=== PATIENT | male | born 1940 | race Caucasian/White ===

== ENCOUNTER 2020-12-05 09:00 | Outpatient (RCR) | payer MEDICARE, SELFPAY | END 2020-12-05 23:59 | LOC: IMMUN 09:00 | PROVIDERS: PCP Family Medicine; Visit Provider Family Medicine | DX: Z23 Encounter for immunization (principal) | CPT/HCPCS: 0011A; 0012A; 91301 ==

== ENCOUNTER 2021-01-08 09:05 | Day surgery (SDC) | payer MEDICARE, SELFPAY ==
[2021-01-08] VITALS (11 sets, daily range): BP systolic 119–148; BP diastolic 60–81; PULSE 67–84; RESP 16; TEMP 36.3–37.1; O2SAT 95–100; BMI 22.2
--- NOTE | 2021-01-08 | PROS_PTH ---
PATIENT: EDMUNDO CHOUDHURY LOC: [facility] [place] U#:[id number] AGE/SX: 80/M ROOM: RE01/08/[address]: Dr. Juve Jade MD : [id number] BED: DIS: 01/09/2021 SPEC #: [id number] RECD: 01/09/21 07:32 STATUS: ASMITA REEmma #: [id number] LUBNA: 01/08/21 00:[address]: Juve Jade DEPT: SURGICAL PATHOLOGY RECD BY: Jerry Patterson ENTERED: 01/09/21 07:41 SP TYPE: TURP OTHR DR: Dr. Royer Sparks, DO Tissues: Prostate, NOS Procedures: Surgery Specimen Level IV HEADER OPERATION: Cysto, TUR prostate, Olymp[employer] PRE-OP DIAGNOSIS: BPH with obstruction TISSUE SUBMITTED: Prostate tissue MICROSCOPIC DIAGNOSIS Prostate tissue, TUR: Benign prostatic hyperplasia, glandular and stromal type. Mild chronic inflammation. SJ:marcos 01/10/2021 MICROSCOPIC DESCRIPTION Slides are reviewed. GROSS DESCRIPTION Received is one container labeled with the patient's name and designated prostate tissue. The specimen consists of multiple irregular fragments of pink-christian, rubbery, soft tissue that in aggregate weigh 6.9 gm and measure in aggregate 4.5 x 3.5 x 1.5 cm. The entire specimen is submitted in six cassettes. / YOLANDA:marcos 01/09/21 TC:5 CPT: 33866
[2021-01-08] MEDS: Lactated Ringers 1,000 ML 100 ML IV (09:50)
[2021-01-08] MEDS: Cefazolin 2 GM in 0.9% Normal Saline 100 ML IV (14:08)
--- NOTE | 2021-01-08 14:14 | HP.PCM_ITS ---
History of Present Illness Date of Admission: 01/08/21 Chief Complaint: BPH with obstruction The patient is a 80 year old male with BPH and obstruction presents for a TURP at the hospital. Past Medical History Allergies No Known Allergies Allergy (Verified 01/08/21 09:27) Home Medications: Ambulatory Orders Medication Instructions Recorded Donepezil HCl [Aricept] 10 mg PO DAILY 01/01/21 Finasteride 5 mg PO DAILY 01/01/21 Surgical History: no surgical history Smoking Status: Former smoker Tobacco Use: Chew Review of Systems Constitutional: Denies: Chills, Fever, Weight Change HEENT: Denies: Head Aches, Sinus Congestion, Sinus Drainage Cardiovascular: Denies: Chest Pain, Palpitations Respiratory: Denies: Cough, Shortness of breath at rest, Sputum production Gastrointestinal: Denies: Abdominal Pain, Nausea, Vomiting Genitourinary: Denies: Dysuria Musculoskeletal: Denies: Joint Pain, Joint Tenderness Skin: Denies: Rash, Wounds Neurological: Denies: Numbness, Tingling, Focal weakness Psychiatric: Denies: Anxiety, Depression, Homicidal Ideations, Suicidal Ideatio ns Hematologic/ Lymphatic: Denies: Easy Bruising, Easy Bleeding VTE Information - Inpt Only VTE Present on Admission: No VTE Mechan Device Prophylaxis: SCD's - Physical Exam Vitals/I&O's: Vital Signs Temp Pulse Resp BP Pulse Ox 97.3 F L 77 16 128/72 H 100 01/08/21 09:27 01/08/21 09:27 01/08/21 09:27 01/08/21 09:27 01/08/21 09:27 Oxygen Delivery Method Room Air Weight: 66.4 kg Body Mass Index (BMI) 22.2 General: Alert, Oriented x3, Cooperative HEENT: Atraumatic, PERRLA, EOMI, Normocephalic Neck: Supple, No JVD, Negative Carotid Bruits Lungs: Clear to auscultation, Normal air movement Cardiovascular: Regular rate, No murmurs Abdomen: Bowel Sounds Present, Soft, Non Tender Extremities: No edema, Capillary Refill Less than 3 Seconds Skin: No rashes, No breakdown Musculoskeletal: No Tenderness to Palpation of Joints or Extremities Neurological: Cranial nerves II-XII grossly intact Psych/Mental Status: Normal Affect, Appropriate Microbiology Past 72 Hours 01/07/21 09:10 Interface Orders SARS-CoV-2 Antigen (Rapid) - Final Current Medications Lactated Ringer's () 1,000 mls @ 100 mls/hr IV .Q10H ANITA Last Admin: 01/08/21 09:50 Dose: 100 mls/hr Documented by: Assessment/Plan plan for TURP
--- NOTE | 2021-01-08 14:16 | DCINST_ITS ---
Discharge Diet: No Restrictions Discharge Activity: Return to Normal Activity, May Not Drive - for 2 days. Additional Activity Instructions:: Please be aware that pain medications may cause nausea. You should typically eat light foods as you take your pain medication. Pain medication may cause constipation, if this is a problem for you, please discuss with your doctor. Call your doctor if your incision/area has: Sudden Increased Bleeding Instructions: Transurethral Resection of the Prostate (TURP): Home Recovery Allergies/Adverse Reactions: Allergies No Known Allergies Allergy (Verified 01/08/21 09:27) Medications to take at Discharge Donepezil HCl [Aricept] 10 mg PO DAILY 01/01/21 Finasteride 5 mg PO DAILY 01/01/21 Primary Care Physician: Royer Sparks DO [Primary Care Provider] - Test Results: Test results from this visit will be discussed in further detail at your follow- up appointment, if applicable. Please Follow Up With: Juve Jade MD When: in 2 weeks, please call to make an appointment.
--- NOTE | 2021-01-08 14:51 | PCM.OPRPT ---
Report of Operation Date of Procedure: 01/08/21 Pre-Operative Diagnosis: bph with obstruction Post-Operative Diagnosis: same Surgery/Procedure Performed:: turp Description of Surgical Findings:: In the preoperative setting I discussed with the patient how the surgery would be done with expect afterwards. We discussed how a prostate resection is done and we discussed the risk of the surgery including, bleeding, infection, retrograde ejaculation, changes with ejaculation or intercourse,. We discussed the possibility that the resection of the prostate may not alleviate his urinary symptoms. We discussed the small risk of developing scar tissue along the urethral channel and strictures. We also discussed the chance of the prostate could grow back and he may need further surgery or treatment in the future for prostate problems. Patient was taken back to the operating room, timeout procedure was performed, he was identified and marked and placed on the operating room table. He underwent general anesthesia. He was placed in dorsolithotomy position. Penis and testicles were prepped and draped in usual sterile fashion. Went into the bladder using the visual obturator with a resectoscope. Once inside the bladder identified the right and left ureteral orifice. I then identified the prostate and the anatomy of the prostate. I marked out the area of the sphincter and the verumontanum was identified. I then proceeded with the prostate resection first resected the median lobe. And then resected the right lobe of the prostate. Then to resect the left lobe of the prostate. I then resected the apical tissue of the prostate. Made sure that there was no injury to the sphincter or the verumontanum was still intact. At the end of the resection all the chips were Ellik out of the bladder. I then identified the left and right ureteral orifice and these were confirmed to be in good position and effluxing and not injured. The resectoscope was removed, a 22 [place] catheter was placed into the bladder on continuous irrigation. And the urine was fairly light pink color and draining normally. He was taken back to the PACU in good condition. Type of Anesthesia:: General Drains: 3 way rojo - Admit VTE Documentation VTE Present on Admission: No VTE Mechan Device Prophylaxis: SCD's
[2021-01-08] MEDS: 0.9% Normal Saline 1,000 ML 75 ML IV (15:10)
[2021-01-08] MEDS: Docusate Sodium 100 MG Capsule PO (21:22)
[2021-01-08] MEDS: Ciprofloxacin 400 MG/200 ML BAG 200 MG IV (21:22)
[2021-01-09] MEDS: 0.9% Normal Saline 1,000 ML 75 ML IV (05:43)
[2021-01-09 08:13] VITALS: BP 101/69; PULSE 76; RESP 16; TEMP 36.7; O2SAT 97
[2021-01-09] MEDS: Ciprofloxacin 400 MG/200 ML BAG 200 MG IV (09:27)
[2021-01-09] MEDS: Donepezil HCl 10 MG Tablet PO (09:28)
[2021-01-09] MEDS: Pantoprazole Sodium 40 MG Tablet PO (09:28)
[2021-01-09] MEDS: Docusate Sodium 100 MG Capsule PO (09:28)
[2021-01-09] MEDS: Finasteride 5 MG Tablet PO (09:28)
[2021-01-09 09:41] VITALS: PULSE 76; RESP 16
[2021-01-09 14:17] VITALS: BP 139/74; PULSE 80; RESP 16; TEMP 36.6; O2SAT 98
--- NOTE | 2021-01-09 17:16 | NURSING ---
Late entry: Student documentation reviewed.
== END 2021-01-09 14:21 | disposition home or self-care (01) ==
LOC: SDC 09:06 → AC 09:08 → MS3 15:49
PROVIDERS: PCP Family Medicine; Referring Provider Urology; Visit Provider Urology
PROC: (CPT 52630; principal; 2021-01-08 12:10)
DX: N40.1 Benign prostatic hyperplasia with lower urinary tract symptoms (principal); N13.8 Other obstructive and reflux uropathy; N41.1 Chronic prostatitis; F17.220 Nicotine dependence, chewing tobacco, uncomplicated; Z20.822 Contact with and (suspected) exposure to COVID-19
CPT/HCPCS: 52630; 87426; 88305; C9803; J7030; J7120; J0744; J2405

== ENCOUNTER 2022-09-05 20:08 | Observation (INO) | payer MEDICARE, SELFPAY ==
[2022-09-05 20:09] VITALS: BP 135/80; PULSE 118; RESP 17; TEMP 36.6; O2SAT 96; BMI 22.0
--- NOTE | 2022-09-05 20:36 | EKG12_ITS ---
Test Reason : DYSRHYTHMIA Blood Pressure : / mmHG Vent. Rate : 095 BPM Atrial Rate : 095 BPM P-R Int : 146 ms QRS Dur : 080 ms QT Int : 330 ms P-R-T Axes : 067 070 042 degrees QTc Int : 414 ms Normal sinus rhythm Nonspecific ST abnormality Abnormal ECG Confirmed by MARY WITT, MORRIS ([id number]), assistant film editor WENDI RUDD ([id number]) on 09/08/2022 1:30:55 PM Referred By: PL Confirmed By:MORRIS HERNANDEZ MD
[2022-09-05 20:50] LABS: Absolute Lymphocyte Count 1.25 X10^3/uL (0.83-4.51); Absolute Neutrophil Count 8.1 X10^3/uL (2.0-7.7); Basophil# 0.02 X10^3/uL; Basophil% 0.2 % (0-1); Eosinophil# 0.05 X10^3/uL; Eosinophils% 0.5 % (0-5); Hematocrit 45.9 % (40-54); Hemoglobin 15.3 g/dL (13.0-16.5); Lymphocyte # 1.25 X10^3/ul (0.83-4.51); Mean Corp Hgb Conc 33.3 g/dL (32-36); Mean Corpuscular Hgb 30.7 pg (27.0-32.0); Mean Corpuscular Volume 92.2 fL (80-94); Mean Platelet Vol. 9.3 fl (6.2-12.0); Monocyte# 0.93 X10^3/uL; Monocyte% 8.9 % (0-10); NRBC Flagged by Analyzer 0 % (0-5); Neutrophil # 8.07 X10^3/uL (2.7-7.7); Neutrophil % 77.6 % (47-70); Platelet Count 260 K/mm3 (150-450); RBC Distribution Width SD 43.8 fl (35.1-43.9); Red Blood Count 4.98 M/mm3 (4.6-6.2); White Blood Count 10.4 K/mm3 (4.4-11.0)
--- NOTE | 2022-09-05 20:56 | EX.ED.DYSGE1 ---
HPI History of Present Illness Chief Complaint: Complaint Informant: spouse/S.O. Narrative Narrative: Patient presents with generalized weakness, fevers frequent urination and incontinence which is new. He has a history of dementia and is on donepezil. No other medical problems. His states that he was recently admitted to the hospital for COVID for about 2 to 3 days. He was admitted just for generalized weakness. He had no breathing problems at any time and still is not coughing. He has been home since Wednesday. He has gotten weaker again. He cannot get up and move around today. She cannot carry him. She was able to get him into urgent care earlier where they stated he has a UTI but because of the weakness and worsening confusion they recommended he come here. PFSH PFSH Home Medications donepezil 10 mg tablet 10 mg PO DAILY 01/01/21 [History Last Taken Unknown] Allergy/AdvReac Type Severity Reaction Status Date / Time No Known Allergies Allergy Verified 09/05/22 20:12 Social History Smoking Status: Never smoker ROS ROS ED Constitutional Constitutional ED: Reports subjective ENT ENT ED: Denies rhinorrhea Respiratory/Chest Respiratory/Chest: Denies cough Gastrointestinal Gastrointestinal: Denies diarrhea or vomiting Genitourinary Genitourinary ED: Reports urinary frequency Integumentary Denies rash Neurologic Neurologic: Reports weakness Endocrine Endocrinology: Reports polyuria; Denies polydipsia Hematologic/Lymphatic Hematologic/Lymphatic: Denies easy bleeding or easy bruising Allergic/Immunologic Allergic/Immunologic ED: Denies urticaria EXAM Physical Exam Const Vital Signs: 09/05/22 20:09 09/05/22 20:36 09/05/22 22:10 Temperature 97.8 F Temperature Source Temporal Pulse Rate 118 H Respiratory Rate 17 Respiratory Pattern Normal Blood Pressure 135/80 H Blood Pressure Mean 98 Pulse Ox 96 97 Oxygen Delivery Method Room Air Room Air Positive well nourished and well developed General Appearance ED: well developed and NAD; Negative for cyanotic or diaphoretic HEENT HEENT Narrative: Mildly dry mucous membrane Neck no JVD Chest Wall inspection of chest normal Resp normal respiratory effort and clear to auscultation bilaterally Resp Narrative: No coughing while I am in the room. Auscultation: Negative for rales, rhonchi or wheezes Cardio regular rhythm Rate: tachycardic GI normal to inspection, nondistended, normoactive bowel sounds and non-tender Narrative: Some external condyloma. Cath specimen was done. Urine did look somewhat cloudy. Back/Spine no CVA tenderness Lumbar Spine / Lower Back: lumbar spinal tenderness Extremity General Extremety ED: Negative for tenderness Neuro Neuro Narrative: Patient is alert and really oriented x1. He does not offer any information during the history. He does cooperate with exam Psych Attitude: No agitated Mood & Affect: Negative for anxious Skin no rashes or lesions noted MDM MDM MDM Narrative Medical decision making narrative: Blood work shows normal CBC including white count hemoglobin and platelets. Electrolytes are overall unremarkable. However, patient was just in the hospital and was given a lot of IV fluids. Lactate was normal. LFTs show minimal elevations of AST and ALT but there is no tenderness on exam. Urine is strongly positive for UTI. It is cloudy. It has up to 100 red cells white cells with positive nitrites and leukocyte Estrace. He has 2+ bacteria. This is a catheterized urine specimen. Patient is too weak to get up and walk. His cannot care for him safely at home because of this. I think he does need to come in the hospital for this. We did also check COVID and this is still positive. This may be contributing to his generalized weakness but I think he genuinely does have a UTI also. He is not having hypoxia or pulmonary symptoms. I discussed case with hospitalist. Lab Data Attestation: I reviewed the patient's lab results. Labs: Laboratory Results - last 24 hr 09/05/22 09/05/22 09/05/22 20:40 20:40 20:40 WBC 10.4 RBC 4.98 Hgb 15.3 Hct 45.9 MCV 92.2 MCH 30.7 MCHC 33.3 RDW Std Deviation 43.8 RDW Coeff of Jeanette 13.0 Plt Count 260 MPV 9.3 Immature Gran % (Auto) 0.800 Neut % (Auto) 77.6 H Lymph % (Auto) 12.0 L [place] % (Auto) 8.9 Eos % (Auto) 0.5 Baso % (Auto) 0.2 Absolute Neuts (auto) 8.1 H Absolute Lymphs (auto) 1.25 Nucleated RBC % 0 Sodium 138 Potassium 3.9 Chloride 104 Carbon Dioxide 26.0 Anion Gap 8 BUN 15 Creatinine 1.17 Estim Creat Clear Calc 44.50 Est GFR (MDRD) Af Amer 76 Est GFR (MDRD) Non-Af 63 BUN/Creatinine Ratio 12.8 Glucose 101 Lactic Acid 1.8 Calcium 8.7 Total Bilirubin 0.60 AST 80 H ALT 73 H Alkaline Phosphatase 113 Total Protein 7.5 Albumin 3.2 Globulin 4.3 H Albumin/Globulin Ratio 0.7 L Urine Color Urine Clarity Urine pH Ur Specific [place] Urine Protein Urine Glucose (UA) Urine Ketones Urine Occult Blood Urine Nitrite Urine Bilirubin Urine Urobilinogen Ur Leukocyte Esterase Urine RBC Urine WBC Ur Squamous Epith Cells Urine Bacteria Urine Mucus 09/05/22 21:00 WBC RBC Hgb Hct MCV MCH MCHC RDW Std Deviation RDW Coeff of Jeanette Plt Count MPV Immature Gran % (Auto) Neut % (Auto) Lymph % (Auto) [place] % (Auto) Eos % (Auto) Baso % (Auto) Absolute Neuts (auto) Absolute Lymphs (auto) Nucleated RBC % Sodium Potassium Chloride Carbon Dioxide Anion Gap BUN Creatinine Estim Creat Clear Calc Est GFR (MDRD) Af Amer Est GFR (MDRD) Non-Af BUN/Creatinine Ratio Glucose Lactic Acid Calcium Total Bilirubin AST ALT Alkaline Phosphatase Total Protein Albumin Globulin Albumin/Globulin Ratio Urine Color Yellow Urine Clarity Sl. Cloudy Urine pH 7.0 Ur Specific [place] 1.010 Urine Protein 100 H Urine Glucose (UA) Normal Urine Ketones 5 H Urine Occult Blood 250 H Urine Nitrite Positive H Urine Bilirubin Negative Urine Urobilinogen Normal Ur Leukocyte Esterase 500 H Urine RBC 50-100 SEEN Urine WBC 50-100 SEEN Ur Squamous Epith Cells 0-5 SEEN Urine Bacteria 2+ Urine Mucus 0 SEEN Radiography Diagnostic Testing: Clinical Impression(s) from Imaging Studies Chest X-Ray 09/05/22 21:35 IMPRESSION: Emphysema without pneumonia or atelectasis. Electronically Signed: Cody Vital MD at 21:48 EDT , Chest x-ray shows some emphysematous changes but no sign of acute pneumonia. EKG Initial EKG: Comments: EKG done for generalized weakness read by me shows sinus rhythm with overall rate of 95. No ventricular ectopy. Slight baseline variation. Nonspecific changes but no acute ST elevation or depression. NH interval, QRS duration and QTc normal. I do not have a prior. Discharge Plan Triage Chief Complaint: Complaint Other Complaint: Shortness of Breath Weakness ED Provider: Christiano Owusu Dx/Rx/DC Orders Clinical Impression: Acute UTI, COVID, Generalized weakness, Unable to ambulate Prescriptions: No Action donepezil 10 MG tablet 10 mg PO DAILY Primary Care Provider: Royer Sparks Referrals: Royer Sparks DO [Primary Care Provider] - Disposition Disposition: Acute Care Hospital [facility]
[2022-09-05 21:13] LABS: ALB/GLOB Ratio 0.7 RATIO (0.9-2.4); AST(SGOT) 80 U/L (15-37); Alanine Aminotransfer ALT/SGPT 73 U/L (16-61); Albumin, Serum 3.2 g/dL (3.2-5.0); Alkaline Phosphatase 113 U/L (45-117); Anion Gap 8 (5-15); BUN 15 mg/dL (7-18); BUN/Creat Ratio 12.8 RATIO (10-20); Calcium,Total 8.7 mg/dL (8.5-10.1); Chloride 104 mmol/L (98-107); Creatinine, Serum 1.17 mg/dL (0.70-1.30); EST Glomerular Filtration Rate 63 mL/min (>60); Est Glom Filt Rate - Afr Amer 76 mL/min (>60); Globulin 4.3 g/dL (2.2-4.2); Glucose 101 mg/dL (74-106); Potassium 3.9 mmol/L (3.5-5.1); Protein, Total 7.5 g/dL (6.4-8.2); Sodium Level 138 mmol/L (136-145)
--- NOTE | 2022-09-05 21:16 | ED.RN ---
Adult brief changed and urinary collection device on patient, hooked to suction.
[2022-09-05 21:19] LABS: Mucous, Urine 0 SEEN /hpf (<or=2+)
[2022-09-05 21:20] LABS: Color, Urine Yellow (Yellow); Glucose, Dipstick Normal (Normal); Ketone-Dipstick 5 mg/dl (Negative); Leukocyte Esterase-Dipstick 500 /ul (Negative); Nitrite-Dipstick Positive (Negative); Occult Blood-Urine 250 /ul (Negative); Protein-Dipstick 100 mg/dl (Negative); Urine Bilirubin Dipstick Negative (Negative); Urine Clarity Sl. Cloudy (Clear); Urine Urobilinogen Normal (Normal)
--- NOTE | 2022-09-05 21:35 | RAD_ITS ---
STUDY: X-RAY CHEST REASON FOR EXAM: Male, 81 years old. ? Pneumonia TECHNIQUE: Single AP portable view of the chest. COMPARISON: None. FINDINGS: There is hyperinflation of the lungs consistent with chronic obstructive lung disease (COPD). There is no demonstrated pleural abnormality. Normal size heart. Normal mediastinum and jerome. Normal visualized pulmonary arteries. Normal visualized aortic arch and descending thoracic aorta. Normal visualized thoracic spine. Normal visualized ribs, clavicles, and shoulders. There is no demonstrated abnormality of the visualized soft tissue structures of the upper abdomen. RAD/Chest 1 View (Portable) IMPRESSION: Emphysema without pneumonia or atelectasis. Electronically Signed: Cody Vital MD at 21:48 EDT ,
[2022-09-05 22:01] LABS: Red Blood Cells-Urine 50-100 SEEN /hpf (0-5); Squamous Epithelial Cells - UA 0-5 SEEN /hpf (0-5); White Blood Cells 50-100 SEEN /hpf (0-5)
[2022-09-05 22:02] LABS: Bacteria 2+ /hpf (None Seen)
[2022-09-05] MEDS: Ceftriaxone 1 GM/50 ML BAG IV (22:08)
[2022-09-05 22:10] VITALS: O2SAT 97
[2022-09-05 22:13] LABS: Lactic Acid 1.8 mmol/L (0.4-1.9)
--- NOTE | 2022-09-05 22:57 | HP.PCM.HOS_ITS ---
HPI - General General Date of Admission: 09/05/22 Date of Service: 09/05/22 Chief Complaint: Increased urinary frequency HPI Narrative EDMUNDO CHOUDHURY, is a 81 M with a significant history of dementia on donepezil who presents to the emergency department with increased frequency of urination and incontinence that started on the same day of presentation.. Patient's urinary symptoms are not typical of patient. Associated with his symptom is weakness and chills. Of note about 6 days before his presentation patient was very weak. Patient was sent to [facility] where he was diagnosed with COVID-19 and was given normal saline infusion. He was eventually discharged home 3 days before this presentation. Reportedly his weakness improved and he has home therapy. However on the day of presentation he had above urinary symptoms and h is weakness worsened. Patient's who was at bedside denies that patient has anorexia. On the same day of presentation he went to the urgent care. Reportedly he had a low-grade fever at the urgent care. His urine was abnormal and the patient was given some kind of shot. Patient was too weak at the urgent care so patient was brought to the hospital. History was taken from patient and patient's who was at the bedside. [facility] Medical History Alzheimer's dementia Home Medications donepezil 10 mg tablet 10 mg PO DAILY 01/01/21 [History Last Taken Unknown] Allergy/AdvReac Type Severity Reaction Status Date / Time No Known Allergies Allergy Verified 09/05/22 20:12 Family History Other Dementia Diabetes Measles Surgical History H/O transurethral resection of prostate Social History Smoking Status: Former smoker Smokeless tobacco user: chewing tobacco ROS ROS Narrative Pertinent positives and pertinent negatives as noted in HPI. All other systems were reviewed and are negative Vital Signs Vital Signs Vital Signs: 09/05/22 20:09 09/05/22 20:36 09/05/22 22:10 Temperature 97.8 F Temperature Source Temporal Pulse Rate 118 H Respiratory Rate 17 Respiratory Pattern Normal Blood Pressure 135/80 H Blood Pressure Mean 98 Pulse Ox 96 97 Oxygen Delivery Method Room Air Room Air Weight Weight: 65.771 kg Body Mass Index (BMI) 22.0 Physical Exam Narrative Physical exam: General: Well-nourished, well-developed. Head: Normocephalic, atraumatic, no tenderness Eyes: Vision is grossly intact. EOMI ENT, no trauma, moist mucous membranes, no rhinorrhea Neck: Nontender, full range of motion. CVS: Regular rate and rhythm. S1-S2 present. No murmur, gallop or rub. Respiratory : Rales at bases, chest wall nontender, no wheezing Abdomen: Soft, nontender, nondistended, normal bowel sounds, no masses : Deferred Back: Nontender, no CVA tenderness. Extremities: Nontender full range of motion, no trauma Skin: Normal color, no trauma, abrasions Neuro: Alert, does not know the month or the year. Cranial nerves II through XII grossly intact. Psychiatry: Normal mood. Normal affect. Not depressed. Not anxious. Results Lab / Micro Data Result Diagrams: 09/05/22 20:40 09/05/22 20:40 Labs: Laboratory Results - last 24 hr 09/05/22 20:40: WBC 10.4, RBC 4.98, Hgb 15.3, Hct 45.9, MCV 92.2, MCH 30.7, MCHC 33.3, RDW Std Deviation 43.8, RDW Coeff of Jeanette 13.0, Plt Count 260, MPV 9.3, Immature Gran % (Auto) 0.800, Neut % (Auto) 77.6 H, Lymph % (Auto) 12.0 L, [place] % (Auto) 8.9, Eos % (Auto) 0.5, Baso % (Auto) 0.2, Absolute Neuts (auto) 8.1 H, Absolute Lymphs (auto) 1.25, Nucleated RBC % 0 09/05/22 20:40: Sodium 138, Potassium 3.9, Chloride 104, Carbon Dioxide 26.0, Anion Gap 8, BUN 15, Creatinine 1.17, Estim Creat Clear Calc 44.50, Est GFR (MDRD) Af Amer 76, Est GFR (MDRD) Non-Af 63, BUN/Creatinine Ratio 12.8, Glucose 101, Calcium 8.7, Total Bilirubin 0.60, AST 80 H, ALT 73 H, Alkaline Phosphatase 113, Total Protein 7.5, Albumin 3.2, Globulin 4.3 H, Albumin/Globulin Ratio 0.7 L 09/05/22 20:40: Lactic Acid 1.8 09/05/22 21:00: Urine Color Yellow, Urine Clarity Sl. Cloudy, Urine pH 7.0, Ur Specific [place] 1.010, Urine Protein 100 H, Urine Glucose (UA) Normal, Urine Ketones 5 H, Urine Occult Blood 250 H, Urine Nitrite Positive H, Urine Bilirubin Negative, Urine Urobilinogen Normal, Ur Leukocyte Esterase 500 H, Urine RBC 50- 100 SEEN, Urine WBC 50-100 SEEN, Ur Squamous Epith Cells 0-5 SEEN, Urine Bacteria 2+, Urine Mucus 0 SEEN Micro: Microbiology 09/05/22 22:07 Nasal Secretion SARS-CoV-2 Antigen (Rapid) - Final SARS-CoV-2 (COVID 19) Radiology Impression Chest X-Ray 09/05/22 21:35 IMPRESSION: Emphysema without pneumonia or atelectasis. Electronically Signed: Cody Vital MD at 21:48 EDT , Assessment & Plan Assessment/Plan (1) Acute UTI: (2) Generalized weakness: (3) Unable to ambulate: (4) COVID: (5) Elevated liver enzymes: PLAN: Plan Acute UTI Urinalysis showed urine protein of 100; 5 ketones; urine occult blood was positive. Urine nitrite positive. Urine leukocyte esterase positive. Urine RBC 50-100. Urine WBC 50-100. Squamous epithelial cells 0-5. Urine bacteria 2+. Urine was a cath specimen. Received ceftriaxone the emergency department and continued. White count of 10,400 with neutrophilia and lymphopenia. Bands are normal. Trend CBC. Generalized weakness/unable to ambulate PT and OT to work with patient for strengthening balance training and for further recommendations. Case management consult for possible placement. COVID-19 infection Chest x-ray was visualized and independently interpreted. I agree with direct interpretation of Emphysema without pneumonia or atelectasis. Patient is not short of breath. Clinical monitoring. Prophylactic subcutaneous Lovenox at enhanced dose. Elevated liver enzymes AST of 80; ALT of 73. Trend CMP. Acute hepatitic panel ordered. DVT prophylaxis: Subcutaneous Lovenox ordered. Charges/Coding Visit Charges Inpatient E&M: 47864 Init Hosp L3
[2022-09-05 23:25] VITALS: BP 140/74; PULSE 87; RESP 17; TEMP 36.8; O2SAT 95
[2022-09-05 23:52] VITALS: BMI 21.9
[2022-09-05 23:58] VITALS: BP 126/66; PULSE 92; RESP 20; TEMP 37; O2SAT 94
[2022-09-06] VITALS (7 sets, daily range): BP systolic 111–141; BP diastolic 54–85; PULSE 60–92; RESP 16–20; TEMP 36–37; O2SAT 93–97
--- NOTE | 2022-09-06 06:24 | PCM.PN.BLA ---
Progress Note Nurse reports clots in urine. Of note patient was straight cathed in the ED. Lovenox ordered but not given yet. Discontinue Lovenox. SCDs ordered.
[2022-09-06 06:29] LABS: Absolute Lymphocyte Count 1.55 X10^3/uL (0.83-4.51); Absolute Neutrophil Count 6.8 X10^3/uL (2.0-7.7); Basophil# 0.02 X10^3/uL; Basophil% 0.2 % (0-1); Eosinophil# 0.05 X10^3/uL; Eosinophils% 0.5 % (0-5); Hematocrit 40.1 % (40-54); Hemoglobin 13.6 g/dL (13.0-16.5); Lymphocyte # 1.55 X10^3/ul (0.83-4.51); Lymphocyte % 16.8 % (19-41); Mean Corp Hgb Conc 33.9 g/dL (32-36); Mean Corpuscular Hgb 30.2 pg (27.0-32.0); Mean Corpuscular Volume 89.1 fL (80-94); Mean Platelet Vol. 9.2 fl (6.2-12.0); Monocyte# 0.85 X10^3/uL; Monocyte% 9.2 % (0-10); NRBC Flagged by Analyzer 0 % (0-5); Neutrophil # 6.75 X10^3/uL (2.7-7.7); Platelet Count 239 K/mm3 (150-450); RBC Distribution Width CV 12.7 % (11.6-14.6); RBC Distribution Width SD 41.7 fl (35.1-43.9); White Blood Count 9.3 K/mm3 (4.4-11.0)
[2022-09-06 07:28] LABS: ALB/GLOB Ratio 0.7 RATIO (0.9-2.4); AST(SGOT) 64 U/L (15-37); Alanine Aminotransfer ALT/SGPT 62 U/L (16-61); Albumin, Serum 2.6 g/dL (3.2-5.0); Alkaline Phosphatase 91 U/L (45-117); Anion Gap 8 (5-15); BUN 15 mg/dL (7-18); BUN/Creat Ratio 15.3 RATIO (10-20); Calcium,Total 8.4 mg/dL (8.5-10.1); Chloride 106 mmol/L (98-107); Creatinine, Serum 0.98 mg/dL (0.70-1.30); EST Glomerular Filtration Rate 77 mL/min (>60); Est Glom Filt Rate - Afr Amer 94 mL/min (>60); Estimated Creatinine Clearance 52.83 ml/min; Globulin 3.7 g/dL (2.2-4.2); Glucose 96 mg/dL (74-106); Potassium 3.8 mmol/L (3.5-5.1); Protein, Total 6.3 g/dL (6.4-8.2); Sodium Level 137 mmol/L (136-145)
[2022-09-06] MEDS: Donepezil HCl 10 MG Tablet PO (11:06)
--- NOTE | 2022-09-06 11:53 | PCM.PN.HOSP ---
Subjective Subjective Patient states he is anxious to go home. Was recently diagnosed with COVID-19. Evidently p.o. intake had been poor at home and he had some generalized weakness. He currently denies any issues. Remains on room air. 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 Very hard of hearing. Objective Data Objective Data Vital Signs: Vital Signs Temp Pulse Resp BP Pulse Ox O2 Del Method 96.8 F L 76 16 118/54 L 96 Room Air 09/06/22 10:46 09/06/22 10:46 09/06/22 10:46 09/06/22 10:46 09/06/22 10:46 09/06/22 10:46 Oxygen Delivery Method Room Air Weight: 65.4 kg Body Mass Index (BMI) 21.9 Intake & Output: Intake and Output for Last 24 Hours 09/04/22 09/05/22 09/06/22 23:59 23:59 23:59 Intake Total 50 / 50 0 / 0 Output Total 300 / 300 Balance 50 / 50 -300 / -300 Lab / Micro Data Result Diagrams: 09/06/22 06:24 09/06/22 06:24 Labs: Laboratory Results - last 24 hr 09/05/22 20:40: WBC 10.4, RBC 4.98, Hgb 15.3, Hct 45.9, MCV 92.2, MCH 30.7, MCHC 33.3, RDW Std Deviation 43.8, RDW Coeff of Jeanette 13.0, Plt Count 260, MPV 9.3, Immature Gran % (Auto) 0.800, Neut % (Auto) 77.6 H, Lymph % (Auto) 12.0 L, Wirt % (Auto) 8.9, Eos % (Auto) 0.5, Baso % (Auto) 0.2, Absolute Neuts (auto) 8.1 H, Absolute Lymphs (auto) 1.25, Nucleated RBC % 0 09/05/22 20:40: Sodium 138, Potassium 3.9, Chloride 104, Carbon Dioxide 26.0, Anion Gap 8, BUN 15, Creatinine 1.17, Estim Creat Clear Calc 44.50, Est GFR (MDRD) Af Amer 76, Est GFR (MDRD) Non-Af 63, BUN/Creatinine Ratio 12.8, Glucose 101, Calcium 8.7, Total Bilirubin 0.60, AST 80 H, ALT 73 H, Alkaline Phosphatase 113, Total Protein 7.5, Albumin 3.2, Globulin 4.3 H, Albumin/Globulin Ratio 0.7 L 09/05/22 20:40: Lactic Acid 1.8 09/05/22 21:00: Urine Color Yellow, Urine Clarity Sl. Cloudy, Urine pH 7.0, Ur Specific Freeland 1.010, Urine Protein 100 H, Urine Glucose (UA) Normal, Urine Ketones 5 H, Urine Occult Blood 250 H, Urine Nitrite Positive H, Urine Bilirubin Negative, Urine Urobilinogen Normal, Ur Leukocyte Esterase 500 H, Urine RBC 50-100 SEEN, Urine WBC 50-100 SEEN, Ur Squamous Epith Cells 0-5 SEEN, Urine Bacteria 2+, Urine Mucus 0 SEEN 09/06/22 06:24: WBC 9.3, RBC 4.50 L, Hgb 13.6, Hct 40.1, MCV 89.1, MCH 30.2, MCHC 33.9, RDW Std Deviation 41.7, RDW Coeff of Jeanette 12.7, Plt Count 239, MPV 9.2, Immature Gran % (Auto) 0.300, Neut % (Auto) 73.0 H, Lymph % (Auto) 16.8 L, Wirt % (Auto) 9.2, Eos % (Auto) 0.5, Baso % (Auto) 0.2, Absolute Neuts (auto) 6.8, Absolute Lymphs (auto) 1.55, Nucleated RBC % 0 09/06/22 06:24: Sodium 137, Potassium 3.8, Chloride 106, Carbon Dioxide 23.0, Anion Gap 8, BUN 15, Creatinine 0.98, Estim Creat Clear Calc 52.83, Est GFR (MDRD) Af Amer 94, Est GFR (MDRD) Non-Af 77, BUN/Creatinine Ratio 15.3, Glucose 96, Calcium 8.4 L, Total Bilirubin 0.60, AST 64 H, ALT 62 H, Alkaline Phosphatase 91, Total Protein 6.3 L, Albumin 2.6 L, Globulin 3.7, Albumin/Globulin Ratio 0.7 L Micro: Microbiology 09/05/22 21:00 Urine, Catheterized Urine Culture - Preliminary Staphylococcus species 09/05/22 22:07 Nasal Secretion SARS-CoV-2 Antigen (Rapid) - Final SARS-CoV-2 (COVID 19) Radiography Diagnostic Testing: Radiology Impression Chest X-Ray 09/05/22 21:35 IMPRESSION: Emphysema without pneumonia or atelectasis. Electronically Signed: Cody Vital MD at 21:48 EDT Reading Location ID and State: [facility] / [place] Tel , Service support , Physical Exam Const alert, no apparent distress, average body habitus and well nourished Constitutional Narrative: Elderly white male lying in bed, oriented to self, place, month, and POTUS but not year, very pleasant, appears comfortable and nontoxic HEENT head/scalp atraumatic and moist oral mucous membranes HEENT Narrative: Extremely hard of hearing, Mallampati is 2-3, no thrush Head and Scalp: normocephalic Resp normal respiratory effort, no retractions, no use of accessory muscles and clear to auscultation bilaterally Auscultation: Negative for crackles, rales, rhonchi or wheezes Cardio regular rate, regular rhythm, S1 normal heart sound, S2 normal heart sound, no murmurs, no rub, no gallops and no clicks GI normal to inspection, nondistended, normoactive bowel sounds, soft to palpation and non-tender Extremity no clubbing, cyanosis or edema Neuro moves all extremities and no focal motor deficits Speech: speech normal Psych affect normal Psych Narrative: Very pleasant Assessment & Plan Assessment/Plan (1) Acute UTI: (2) COVID: (3) Generalized weakness: (4) Unable to ambulate: (5) Elevated liver enzymes: PLAN: Plan Acute urinary tract infection -Current cultures showing staph species -Blood cultures are pending -Continue current IV antibiotics and await culture results with sensitivities and narrow as appropriate Acute COVID-19 infection -Suspect this is the etiology of his transaminitis -Overall fairly asymptomatic other than fatigue and decreased p.o. intake -Continue supportive care -Patient is on room air and stable Transaminitis -Likely related to acute COVID-19 infection -They have trended down since yesterday -Repeat in a.m. Generalized weakness/inability to ambulate -Physical and Occupational Therapy consults pending -May need placement at discharge -We will rate recommendations -Patient would need pre-CERT for placement--> insurance is a Medicare advantage plan Dementia -Continue home Aricept DVT prophylaxis -Start enoxaparin CODE STATUS -DNR CCA no intubation per discussion on admission Charges/Coding Visit Charges Inpatient E&M: 88472 Subs Hosp L2
[2022-09-06] MEDS: Enoxaparin 40 MG/0.4 ML Syringe SC (14:17)
--- NOTE | 2022-09-06 18:24 | NURSING ---
Charting reviewed with Kathy Ramírez RN
[2022-09-06] MEDS: Ceftriaxone 1 GM/50 ML BAG IV (21:28)
[2022-09-06] MEDS: 0.9% Saline Lock 10 ML Syringe IV (21:29)
[2022-09-07 03:20] VITALS: BP 129/63; PULSE 71; RESP 20; TEMP 36.2; O2SAT 95
[2022-09-07 09:00] VITALS: BP 124/57; PULSE 63; RESP 17; TEMP 36.5; O2SAT 93
[2022-09-07] MEDS: Enoxaparin 40 MG/0.4 ML Syringe SC (09:07)
[2022-09-07] MEDS: Donepezil HCl 10 MG Tablet PO (09:08)
--- NOTE | 2022-09-07 10:46 | CASEMGMT ---
Addendum entered by Sharmin Hogan 09/07/22 13:23: Per Nya at [facility], they do not have any regular WW in stock, so it will be delivered to pt's home. updated, voices understanding. Ute CAMPUZANO aware and states will d/c pt home. Nazario CAMPUZANO CM Addendum entered by Sharmin Hogan 09/07/22 13:17: Per therapy, pt is ok to go home with [facility] at discharge but pt would benefit from WW at discharge. states would like to take walker home, if possible so script obtained and sent to [facility] and Nya, [facility] rep, notified of order. CM to follow. Nazario CAMPUZANO CM Addendum entered by Sharmin Hogan 09/07/22 12:53: states pt did well with therapy yesterday but states when she got him dressed today, pt more unsteady. Per Ute CAMPUZANO, pt has not been out of bed all morning. Call to PT/OT assistants to come see pt prior to discharge. Ute CAMPUZANO aware. Nazario CAMPUZANO CM Addendum entered by Sharmin Hogan 09/07/22 11:34: D/C summary sent via [facility] and call to [place] to notify of d/c. Nazario CAMPUZANO CM Original Note: Call from [facility] and they state they are active with pt for PT/OT. ANGELIC order placed and SN added d/t COVID dx. Clinicals to be sent via [facility]. Nazario CAMPUZANO CM
--- NOTE | 2022-09-07 10:47 | PCM.DC.SUM ---
Providers Date of Admission: 09/05/22 Primary Care Physician: Dr. Royer Sparks, DO Reason For Visit: UTI Diagnosis Discharge Diagnosis (1) Acute UTI: Status: Acute Code(s): N39.0 - Urinary tract infection, site not specified (2) COVID: Status: Acute Code(s): U07.1 - COVID-19 (3) Generalized weakness: Status: Acute Code(s): R53.1 - Weakness (4) Unable to ambulate: Status: Acute Code(s): R26.2 - Difficulty in walking, not elsewhere classified (5) Elevated liver enzymes: Status: Acute Code(s): R74.8 - Abnormal levels of other serum enzymes Plan Acute urinary tract infection -Current cultures showing staph species -Blood cultures are pending -Continue current IV antibiotics and await culture results with sensitivities and narrow as appropriate Acute COVID-19 infection -Suspect this is the etiology of his transaminitis -Overall fairly asymptomatic other than fatigue and decreased p.o. intake -Continue supportive care -Patient is on room air and stable Transaminitis -Likely related to acute COVID-19 infection -They have trended down since yesterday -Repeat in a.m. Generalized weakness/inability to ambulate -Physical and Occupational Therapy consults pending -May need placement at discharge -We will rate recommendations -Patient would need pre-CERT for placement--> insurance is a Medicare advantage plan Dementia -Continue home Aricept DVT prophylaxis -Start enoxaparin CODE STATUS -DNR CCA no intubation per discussion on admission Medications at Discharge Home Medications donepezil 10 mg tablet 10 mg PO DAILY 01/01/21 cephalexin 500 mg capsule 500 mg PO Q6H #20 caps 09/07/22 Hospital Course Operations None Procedures EKG and - (Chest x-ray) Summary of Care Provided Minutes Spent on Discharge: 36 Hospital Course: Mr. Candelaria is an 81-year-old white male who presented to the emergency department at [facility] on 09/05/2022 with urinary frequency and incontinence. He had a recent admission for a brief stay over at [facility] at which time he was diagnosed with COVID. He was found to be weak and dehydrated and was given IV fluids. His indicated that he was straight cathed for urine at that time but his above urinary symptoms were new the day of presentation. He did well for couple days after discharge from [place] but then his weakness worsened in association with his above urinary symptoms. His oral intake however was good. He initially gone to urgent care where he was reported to have a low-grade fever however his UA was abnormal and he was sent to the emergency department secondary to his weakness. He was admitted to the hospital and placed on antibiotics with ceftriaxone. A urine culture was obtained and shows a Staphylococcus species. Blood cultures remain pending. Complete identification and sensitivities of his urine remain pending at this time as well however he has gotten better with ceftriaxone. He was evaluated by physical therapy and had some identifiable areas at which he needed work and home health was recommended. Per discussion with his , home health had already been set up after his discharge from [facility] and after discussion with case management these services will remain in place at the time of discharge from here. The patient was dramatically better compared to presentation and was asking to go home. He overall did quite well during his hospital course. He was discharged home with Keflex 500 mg 4 times daily for another 5 days to complete a 7-day course for complicated urinary tract infection. He already has an appointment to follow-up with his primary care physician on Wednesday of this week and I encouraged them to keep this appointment for close follow-up. We have encouraged to push oral fluids with his recent dehydration and his voiced understanding. We did discuss to push things other than water alone as this could result in hyponatremia. He was discharged home with home health in stable condition on 09/07/2022. It was requested that he quarantine at least 10 days from the onset of his symptoms or at least wear a mask if this is not possible. Discharge diagnoses: Acute Staphylococcus urinary tract infection Acute COVID-19 infection Transaminitis secondary to COVID-19 infection-improving Generalized weakness Dementia Physical Exam Const alert, no apparent distress, average body habitus and well nourished Constitutional Narrative: Elderly white male lying in bed, oriented to self, place, month, and POTUS but not year, very pleasant, appears comfortable and nontoxic, at bedside General Appearance: cooperative, comfortable, well kempt and well developed Orientation / Consciousness: awake, oriented to person and oriented to place Exam Limitations: no limitations HEENT normocephalic, head/scalp atraumatic and moist oral mucous membranes; Negative for hearing grossly normal bilaterally HEENT Narrative: Dentures in place, Mallampati 2, no thrush, extremely hard of hearing Eyes PERRL, EOMs intact bilaterally and conjunctivae normal Eyes Narrative: No scleral icterus Neck no lymphadenopathy and supple Neck Narrative: Trachea midline, no thyroid enlargement Resp normal respiratory effort, no retractions, no use of accessory muscles and clear to auscultation bilaterally Auscultation: Negative for crackles, rales, rhonchi or wheezes Cardio regular rate, regular rhythm, S1 normal heart sound, S2 normal heart sound, no murmurs, no rub, no gallops and no clicks GI normal to inspection, nondistended, normoactive bowel sounds, soft to palpation and non-tender Extremity no clubbing, cyanosis or edema Extremity Narrative: 2+ pedal pulses Skin no rashes or lesions noted, no wounds, skin turgor normal and no jaundice Neuro CN's II-XII intact bilaterally, moves all extremities and no focal motor deficits Neuro Narrative: Mild generalized weakness, proximal greater than distal Speech: speech normal Psych affect normal Psych Narrative: Very pleasant Weight / BMI Weight Weight: 65.4 kg Body Mass Index (BMI) 21.9 ABG / Lab / Microbiology Data Result Diagrams: 09/06/22 06:24 09/06/22 06:24 Microbiology: Microbiology 09/05/22 21:00 Urine, Catheterized Urine Culture - Preliminary Staphylococcus species 09/05/22 22:07 Nasal Secretion SARS-CoV-2 Antigen (Rapid) - Final SARS-CoV-2 (COVID 19) Meaningful Use Info Meaningful Use Diagnoses (Choose all that apply): None applicable Discharge Plan Admission Admit Date/Time: 09/05/22 22:50 Primary Reason for Your Visit: Urinary frequency/incontinence Attending Provider: Val Ramirez Primary Care Provider: Royer Sparks Consulting Providers: Jonathan Duffy Instructions Additional Instructions / Restrictions: 1. Please quarantine for 2 more days or wear masks when in public environments Discharge Orders/Prescriptions Prescriptions: New cephalexin 500 mg capsule 500 mg PO Q6H Qty: 20 0RF Continued donepezil 10 MG tablet 10 mg PO DAILY Referrals / Follow Up: Royer Sparks DO [Primary Care Provider] - See Referral Note (As scheduled for 09/09/2022) Disposition Disposition (needs filled in before D/C Order can be placed): Home Health Service Charges/Coding Visit Charges Inpatient E&M: 04136 Disch Hosp
--- NOTE | 2022-09-07 11:30 | CASEMGMT ---
RN CM called patient in room for initial transition planning/care coordination assessment, Shanna answered. RN AKIN introduced self and role at [facility]. willing to participate in assessment and is able to answer all questions appropriately. Care providers, pharmacy, and demographics verified. Patient wishes to discharge home with resumption of HHC with [facility], declined list for additional C agencies. states he has no further needs or concerns at this time. CM to follow for discharge planning needs that may arise. PCP: [facility] Specialists: Yasmany urologskyler [facility]: [facility] Prescription Benefit: yes Living Will/HPOA: none LNOK: Living Arrangements: Patient lives with in a 2 story home with bed and bath on first floor. 2 steps to enter the home. Patient was independent at home prior to hospitalization. Transportation: self, DME/HHC: Patient has raised toilet. Patient is active with [facility] for therapy. Disposition Plan: Patient to discharge home with resumption of HHC, family support, and follow-up plans in place. Sharmin FREEMAN, RN, CM
[2022-09-07 12:38] VITALS: O2SAT 94
--- NOTE | 2022-09-10 17:34 | PCM.HOSP.N ---
Hospitalist Note Culture reviewed and pathology shows staff aureus-MSSA. Patient discharged with Keflex which should cover. I suspect this is related to his recent instrumentation prior to admission here done at [facility]. Patient has negative blood cultures at 48 hours and we will continue to follow these however without any systemic signs of infection and negative blood cultures at this time we feel that this is a localized infection and not systemic.
--- NOTE | 2022-09-16 09:38 | CASEMGMT ---
Message from pt's , stating they have still not received WW that was ordered thru [facility] on day of d/c. Call to Nya at [facility] and she is checking on order and will notify pt/ once delay determined and WW en route. [facility], [facility] was sent and received on 09/07/22 by [facility]. Nazario CAMPUZANO CM
== END 2022-09-07 13:44 | disposition home health service (06) | DRG 689 ==
LOC: ED 23:03 → PCU 23:30
PROVIDERS: Admitting Provider Hospitalist; Emergency Provider Emergency Medicine; PCP Family Medicine; Visit Provider Internal Medicine
DX: N39.0 Urinary tract infection, site not specified (principal); F02.80 Dementia in other diseases classified elsewhere, unspecified severity, without behavioral disturbance, psychotic disturbance, mood disturbance, and anxiety; G30.9 Alzheimer's disease, unspecified; J43.9 Emphysema, unspecified; U07.1 COVID-19; R26.2 Difficulty in walking, not elsewhere classified; E86.0 Dehydration; F17.220 Nicotine dependence, chewing tobacco, uncomplicated; Z66 Do not resuscitate; R74.8 Abnormal levels of other serum enzymes; H91.90 Unspecified hearing loss, unspecified ear; R74.01 Elevation of levels of liver transaminase levels; Z79.899 Other long term (current) drug therapy; B95.8 Unspecified staphylococcus as the cause of diseases classified elsewhere; R32 Unspecified urinary incontinence
CPT/HCPCS: 36415; 71045; 80053; 81001; 83605; 85025; 87040; 87077; 87086; 87088; 87186; 87811; 93005; 96365; 96366; 96372; 97162; 97166; 97530; 99218; 99285; 99406; P9612; A4216; G0378

== ENCOUNTER 2023-06-14 19:17 | Emergency (ER) | payer MEDICARE, SELFPAY ==
[2023-06-14 19:19] VITALS: BP 155/83; PULSE 118; RESP 22; TEMP 37.4; O2SAT 100
[2023-06-14 20:48] VITALS: BP 114/72; PULSE 110; RESP 17; TEMP 36.4; O2SAT 96
[2023-06-14 21:00] VITALS: TEMP 36.9
--- NOTE | 2023-06-14 21:28 | RAD_ITS ---
STUDY: XR Chest 2 Views 06/14/2023 9:23 PM REASON FOR EXAM: Male, 82 years old. CHEST PAIN Cough and fever COMPARISON: 09/05/2022 TECHNIQUE: XR Chest 2 Views FINDINGS: There is no demonstrated pleural abnormality. Normal heart size. Normal mediastinum. Normal jerome. Prominent appearing increased interstitial lung markings. Normal visualized pulmonary arteries. There is atherosclerotic calcification of the aortic arch with tortuosity. There are diffuse degenerative changes of the visualized thoracic spine. There is degenerative osteoarthritis of the bilateral shoulders. There are no acute findings of the upper abdomen. RAD/Chest PA and Lateral IMPRESSION: There are no acute findings. Electronically Signed: Luis A Rubio MD at 21:46 EDT ,
[2023-06-14 21:39] LABS: Absolute Lymphocyte Count 0.42 X10^3/uL (0.83-4.51); Absolute Neutrophil Count 11.9 X10^3/uL (2.0-7.7); Basophil# 0.03 X10^3/uL; Basophil% 0.2 % (0-1); Eosinophil# 0.01 X10^3/uL; Eosinophils% 0.1 % (0-5); Hematocrit 41.6 % (40-54); Hemoglobin 13.8 g/dL (13.0-16.5); Lymphocyte # 0.42 X10^3/ul (0.83-4.51); Lymphocyte % 3.2 % (19-41); Mean Corp Hgb Conc 33.2 g/dL (32-36); Mean Corpuscular Hgb 31.1 pg (27.0-32.0); Mean Corpuscular Volume 93.7 fL (80-94); Mean Platelet Vol. 9.5 fl (6.2-12.0); Monocyte# 0.82 X10^3/uL; Monocyte% 6.2 % (0-10); NRBC Flagged by Analyzer 0 % (0-5); Neutrophil # 11.87 X10^3/uL (2.7-7.7); Neutrophil % 89.8 % (47-70); POSITIVE DIFFERENTIAL YES; Platelet Count 242 K/mm3 (150-450); RBC Distribution Width CV 12.8 % (11.6-14.6); RBC Distribution Width SD 43.9 fl (35.1-43.9); Red Blood Count 4.44 M/mm3 (4.6-6.2); White Blood Count 13.2 K/mm3 (4.4-11.0)
--- NOTE | 2023-06-14 21:40 | EDS_ITS ---
HPI History of Present Illness Chief Complaint: Fever Detail of Chief Complaint: 6documented fever to 102.0 ?F Informant: patient and spouse/S.O. Onset/Context/Timing Onset: Today Context: Sudden Onset Timing: Intermittent Quality: Fever, flushed, confusion Location: General lysed Current Severity: Unable to determine Maximum Severity: Unable to determine Worsened by: states this happens when he has pneumonia or urinary tract infection. Relieved by: Tylenol Associated Symptoms Associated Symptoms: Patient's had increased urination per . He had a slight cough. Cough Narrative Narrative: Patient is a 82-year-old male with past history of UTI, COVID, and pneumonia. He was sent to the emergency department because of documented temperature 102.0 ?F. He apparently took Tylenol 1 to 2 hours prior to arrival. He denies headache. Nuys double vision, blurred vision loss of vision. [place] light sensitivity. Eyes ringing's ears decreased hearing. He denies rhinorrhea, congestion or postnasal drainage. He denies sore throat. He does have a slight cough. The cough is nonproductive. He denies chest discomfort. He denies abdominal pain. He denies nausea, vomiting diarrhea. He denies discomfort with urination. He does have frequency. He is noted to be flushed. He feels much warmer to touch than documented temperature 99.4. He denies skin lesions. Prior similar symptoms: Yes (UTI and Pneumonia) Recent Illness/Hospitalization: No [facility] Medical History Alzheimer's dementia Home Medications donepezil 10 mg tablet 10 mg PO DAILY 01/01/21 [History Last Taken Unknown] cephalexin 500 mg capsule 500 mg PO Q6H #20 caps 09/07/22 [Rx Last Taken Unknown] Allergy/AdvReac Type Severity Reaction Status Date / Time No Known Allergies Allergy Verified 06/14/23 19:18 Family History Other Dementia Diabetes Measles Surgical History H/O transurethral resection of prostate Social History Smoking Status: Unknown if ever smoked Smokeless tobacco user: chewing tobacco ROS ROS ED Review of Systems ROS Unobtainable: due to mental status and other Details: supplemented because patient has dementia. Constitutional Constitutional ED: Reports chills and fever(s); Denies sweats or weight loss Eyes Eyes: Denies blurry vision, change in vision or diplopia ENT ENT ED: Denies ear pain, rhinorrhea or sore throat Cardiovascular Cardiovascular: Denies chest pain, orthopnea, palpitations or paroxysmal nocturnal dyspnea Respiratory/Chest Respiratory/Chest: Reports cough and other; Denies dyspnea, dyspnea on exertion, orthopnea or paroxysmal nocturnal dyspnea Gastrointestinal Gastrointestinal: Denies abdominal pain, diarrhea, nausea or vomiting Genitourinary Genitourinary ED: Reports urinary frequency; Denies dysuria or hematuria Musculoskeletal Musculoskeletal: Denies arthralgias, back pain or myalgias Integumentary Denies rash Neurologic Neurologic: Reports other Details: Increased confusion from baseline ; Denies headache(s) or paresthesias Allergic/Immunologic Allergic/Immunologic ED: Denies mouth swelling, tongue swelling or urticaria EXAM Physical Exam Narrative Exam Narrative: Vital signs are remarkable for tachycardia. He is slightly tachypneic. He is not hypoxic nor is he febrile. Const Vital Signs: 06/14/23 19:19 06/14/23 20:48 06/14/23 20:49 Temperature 99.4 F H 97.5 F L Temperature Source Temporal Oral Pulse Rate 118 H 110 H Respiratory Rate 22 H 17 Respiratory Effort Normal Non-Labored Respiratory Pattern Normal Blood Pressure 155/83 H 114/72 Blood Pressure Mean 107 86 Pulse Ox 100 96 Oxygen Delivery Method Room Air Room Air 06/14/23 21:00 06/14/23 22:00 06/14/23 23:00 Temperature 98.5 F 98.6 F 98.4 F Temperature Source Oral Oral Oral Pulse Rate 109 H 105 H Respiratory Rate 15 19 H Respiratory Effort Respiratory Pattern Blood Pressure 105/69 122/66 H Blood Pressure Mean 81 84 Pulse Ox 96 95 Oxygen Delivery Method Room Air Room Air 06/14/23 23:00 Temperature Temperature Source Pulse Rate 105 H Respiratory Rate Respiratory Effort Respiratory Pattern Blood Pressure Blood Pressure Mean Pulse Ox Oxygen Delivery Method Positive well nourished Constitutional Narrative: Patient appears flushed. General Appearance ED: NAD; Negative for cyanotic or diaphoretic HEENT HEENT Narrative: Mucosa is slightly moist at best. Head is atraumatic normocephalic. Ears are normal. TMs are normal. Nares are patent. Posterior pharynx out erythema or exudate. Uvula is midline. Eyes PERRL and EOMs intact bilaterally General Eye ED: Negative for pale conjunctiva or scleral icterus Neck no lymphadenopathy, supple and no JVD Chest Wall inspection of chest normal and palpation of chest normal Resp normal respiratory effort and clear to auscultation bilaterally Cardio regular rhythm, S1 normal heart sound, S2 normal heart sound and no murmurs Rate: tachycardic GI normal to inspection, nondistended, normoactive bowel sounds, non-tender and non-distended; Negative for hepatosplenomegaly or no masses Palpation: soft Back/Spine no CVA tenderness Thoracic Spine / Upper Back: Negative for thoracic spinal tenderness Lumbar Spine / Lower Back: Negative for lumbar spinal tenderness Extremity normal to inspection General Extremety ED: Negative for tenderness Neuro No oriented x3, CN's II-XII intact bilaterally and no sensory deficits noted Neuro Narrative: Is awake but not alert. Motor Exam: strength 5/5 throughout Psych Psych Narrative: Affect is flat mood is depressed Skin Skin Narrative: Patient has a confluent erythematous blanching rash from mid chest to his scalp. His skin is otherwise pale. General Skin Exam: Negative for jaundice Lesions: No lesion noted Rashes: No rashes noted MDM MDM MDM Narrative Medical decision making narrative: With documented fever and increased confusion need to evaluate for infectious encephalopathy. Doubt metabolic. CBC, competence metabolic panel, UA and chest x-ray were obtained. Temperature was reassessed. Suspect his temperature is now normal because he received antipyretics. History & Record Review Discussion w/independent historian: Significant other Lab Data Attestation: I reviewed the patient's lab results. Lab results narrative: White count is slightly elevated at 13.2 thousand with shift. There is no bandemia. I was informed at 2230 that is slightly elevated 2.0. Electrolyte panel is unremarkable. Potassium is 3.4 which is slightly below lower end of normal and calcium is slightly low at 8.4. Labs: Laboratory Results - last 24 hr 06/14/23 06/14/23 21:18 22:55 WBC 13.2 H RBC 4.44 L Hgb 13.8 Hct 41.6 MCV 93.7 MCH 31.1 MCHC 33.2 RDW Std Deviation 43.9 RDW Coeff of Jeanette 12.8 Plt Count 242 MPV 9.5 Immature Gran % (Auto) 0.500 Neut % (Auto) 89.8 H Lymph % (Auto) 3.2 L [place] % (Auto) 6.2 Eos % (Auto) 0.1 Baso % (Auto) 0.2 Absolute Neuts (auto) 11.9 H Absolute Lymphs (auto) 0.42 L Nucleated RBC % 0 Differential Comment SEE COMMENT Platelet Estimate ADEQUATE RBC Morphology N CHROM Anisocytosis RARE Macrocytosis RARE Sodium 137 Potassium 3.4 L Chloride 106 Carbon Dioxide 24.0 Anion Gap 7 BUN 16 Creatinine 0.96 Est GFR (MDRD) Af Amer 96 Est GFR (MDRD) Non-Af 79 BUN/Creatinine Ratio 16.6 Glucose 101 Lactic Acid 2.0 Calcium 8.4 L Urine Color Yellow Urine Clarity Clear Urine pH 6.5 Ur Specific [place] 1.015 Urine Protein Negative Urine Glucose (UA) Normal Urine Ketones Negative Urine Occult Blood 10 H Urine Nitrite Negative Urine Bilirubin Negative Urine Urobilinogen 4 H Ur Leukocyte Esterase Negative Urine RBC 0 SEEN Urine WBC 0 SEEN Ur Squamous Epith Cells 0-5 SEEN Urine Bacteria RARE Urine Mucus 1+ UA is unremarkable. Macro is negative for leukoesterase and nitrites. There is occult blood noted and urobilinogen. Micro reveals 0 reds, 0 whites, 0-5 squamous epithelial cells and rare bacteria. This is not consistent with a urin rosa elena tract infection. Cultures were sent. Since there is no obvious source patient was not treated with antibiotics. Radiography Chest X-Ray - ED: 2 View and Read by ED Physician (2 view chest x-ray reveals minimal chronic changes with no infiltrate or effusion. Perihilar region normal. Cardiac silhouette and size normal. Osseous structures are unremarkable. This is independently reviewed interpreted by me.) Diagnostic Testing: Clinical Impression(s) from Imaging Studies Chest X-Ray 06/14/23 21:28 IMPRESSION: There are no acute findings. Electronically Signed: Luis A Rubio MD at 21:46 EDT , Discharge Plan Triage Chief Complaint: Fever Other Complaint: Weakness ED Provider: José Miguel Veliz Dx/Rx/DC Orders Clinical Impression: Fever and chills, Sinus tachycardia, Dementia, Leukocytosis Instructions: ED FUO Adult Prescriptions: No Action donepezil 10 MG tablet 10 mg PO DAILY cephalexin 500 mg capsule 500 mg PO Q6H Qty: 20 0RF Primary Care Provider: Royer Sparks Referrals: Royer Sparks DO [Primary Care Provider] - 1 Day for another exam Activity Restrictions/Additional Instructions: Since there is no obvious source of infection and you are not febrile in the emergency department antibiotics were not started. If any of your cultures return positive you will be contacted and placed on appropriate antibiotic. Disposition Disposition: Home, Self Care
[2023-06-14 21:46] LABS: Anion Gap 7 (5-15); BUN 16 mg/dL (7-18); BUN/Creat Ratio 16.6 RATIO (10-20); Calcium,Total 8.4 mg/dL (8.5-10.1); Chloride 106 mmol/L (98-107); Creatinine, Serum 0.96 mg/dL (0.70-1.30); EST Glomerular Filtration Rate 79 mL/min (>60); Est Glom Filt Rate - Afr Amer 96 mL/min (>60); Glucose 101 mg/dL (74-106); Potassium 3.4 mmol/L (3.5-5.1); Sodium Level 137 mmol/L (136-145)
[2023-06-14 21:58] LABS: Differential Indicated SCAN CRITERIA MET
[2023-06-14 22:00] VITALS: BP 105/69; PULSE 109; RESP 15; TEMP 37; O2SAT 96
[2023-06-14 23:00] VITALS: BP 122/66; PULSE 105; RESP 19; TEMP 36.9; O2SAT 95
[2023-06-14 23:00] LABS: Red Blood Cells-Urine 0 SEEN /hpf (0-5); White Blood Cells 0 SEEN /hpf (0-5)
[2023-06-14 23:01] LABS: Anisocytosis RARE; Macrocytosis RARE; Platelet Estimate ADEQUATE (ADEQ); Red Cell Morphology N CHROM NORMAL (NORM C&C)
[2023-06-14 23:02] LABS: Color, Urine Yellow (Yellow); Glucose, Dipstick Normal (Normal); Ketone-Dipstick Negative (Negative); Leukocyte Esterase-Dipstick Negative /ul (Negative); Nitrite-Dipstick Negative (Negative); Occult Blood-Urine 10 /ul (Negative); Protein-Dipstick Negative (Negative); Specific Gravity, Urine 1.015 (1.002-1.030); Urine Bilirubin Dipstick Negative (Negative); Urine Clarity Clear (Clear); Urine Urobilinogen 4 mg/dl (Normal); Urine pH 6.5 (5.0 - 8.0)
[2023-06-14 23:32] LABS: Squamous Epithelial Cells - UA 0-5 SEEN /hpf (0-5)
[2023-06-14 23:33] LABS: Bacteria RARE /hpf (None Seen); Mucous, Urine 1+ /hpf (<or=2+)
[2023-06-14 23:38] VITALS: BP 108/82; PULSE 104; RESP 16; TEMP 36.9; O2SAT 97; BMI 20.8
[2023-06-15 01:24] LABS: Reflex Lactate? Y
== END 2023-06-15 00:07 | disposition home or self-care (01) ==
PROVIDERS: Emergency Provider Emergency Medicine; PCP Family Medicine; Visit Provider Emergency Medicine
DX: R50.9 Fever, unspecified (principal); G30.9 Alzheimer's disease, unspecified; F02.80 Dementia in other diseases classified elsewhere, unspecified severity, without behavioral disturbance, psychotic disturbance, mood disturbance, and anxiety; R53.1 Weakness; R00.0 Tachycardia, unspecified; R06.82 Tachypnea, not elsewhere classified; R05.9 Cough, unspecified; D72.829 Elevated white blood cell count, unspecified; F17.220 Nicotine dependence, chewing tobacco, uncomplicated; Z79.82 Long term (current) use of aspirin; Z79.899 Other long term (current) drug therapy
CPT/HCPCS: 71046; 80048; 81001; 83605; 85025; 87040; 87086; 87186; 99283; J7040; A4216

== ENCOUNTER 2023-06-18 16:39 | Emergency (ER) | payer MEDICARE, SELFPAY ==
[2023-06-18 16:40] VITALS: BP 140/64; PULSE 79; RESP 18; TEMP 36.6; O2SAT 97
[2023-06-18 16:56] VITALS: BMI 21.4
--- NOTE | 2023-06-18 17:00 | EKG12_ITS ---
Test Reason : ABN LABS Blood Pressure : / mmHG Vent. Rate : 070 BPM Atrial Rate : 070 BPM P-R Int : 150 ms QRS Dur : 090 ms QT Int : 392 ms P-R-T Axes : 063 061 027 degrees QTc Int : 423 ms Normal sinus rhythm Normal ECG Confirmed by FRANK WITT, ESE ([id number]), art editor WENDI RUDD ([id number]) on 06/21/2023 1:14:59 PM Referred By: Confirmed By:ESE MARIE MD
--- NOTE | 2023-06-18 17:01 | CT_ITS ---
EXAM: CT ABDOMEN AND PELVIS WITH INTRAVENOUS CONTRAST CLINICAL INDICATION: fever, bacteremia TECHNIQUE: Helically acquired images were obtained of the abdomen and pelvis with intravenous contrast. This CT exam was performed using one or more of the following dose reduction techniques: automated exposure control, adjustment of the mA and/or kV according to patient size, and/or use of iterative reconstruction technique. CONTRAST: IV 100mL Isovue-300 COMPARISON: No relevant prior studies available. FINDINGS: LOWER THORAX: Unremarkable. Lung bases are clear. No cardiomegaly. No significant pericardial effusion. ABDOMEN: LIVER: Unremarkable. Homogeneous. No focal mass. GALLBLADDER AND BILE DUCTS: Gallbladder is contracted with questionable thickening of the gallbladder wall. No calcified gallstones. No intra- or extrahepatic biliary ductal dilation. PANCREAS: Unremarkable. No focal cystic or solid mass. SPLEEN: Unremarkable. Normal size without focal cystic or solid mass. ADRENALS: Unremarkable. No nodules. KIDNEYS AND URETERS: Delayed images show normal excretion of contrast from both kidneys. Normal renal size and position. No hydronephrosis. STOMACH AND BOWEL: Unremarkable. No stomach or bowel distention. No focal inflammatory change. PELVIS: APPENDIX: No evidence of acute appendicitis. BLADDER: There are bilateral bladder diverticula measuring 5.5 x 5.5 cm on the right and 2.6 x 3.7 cm on the left. There is mild thickening of the wall the urinary bladder. REPRODUCTIVE: Unremarkable as visualized. No mass. ABDOMEN and PELVIS: INTRAPERITONEAL SPACE: Unremarkable. No ascites or other fluid collection. No free air. BONES/JOINTS: Unremarkable. No suspicious lytic or blastic abnormality. SOFT TISSUES: Unremarkable. No discrete abdominal or pelvic wall hernia. VASCULATURE: Unremarkable. Abdominal aorta is non-dilated. LYMPH NODES: Unremarkable. No enlarged lymph nodes. CT/Abdomen/Pelvis W IV Cont ONLY IMPRESSION: 1. Bilateral bladder diverticula posteriorly larger on the right. There is also thickening wall the urinary bladder which may be due to incomplete distention or possible cystitis. 2. Contraction of the gallbladder with questionable thickening of the gallbladder wall. If indicated further evaluation with ultrasound may be beneficial. No other acute abnormalities are identified. Electronically Signed: Omari Maria MD at 18:47 EDT ,
--- NOTE | 2023-06-18 17:04 | EDS_ITS ---
HPI History of Present Illness Chief Complaint: Abn Labs Detail of Chief Complaint: Positive blood culture Informant: patient and family Narrative Narrative: Patient presents secondary to positive blood culture. Patient was seen in the ER on June 14 with fever up to 102 and urinary frequency. He was admitted approximately 6 weeks ago to hospital in [place] with pneumonia. Family states that the culture came back E. coli for that. He was not found to have bacteremia at that time. When he got sick again this past week, they presented to the emergency room. Lab work revealed a mild leukocytosis. Urinalysis revealed no obvious infection. Urine culture is negative, however one of the blood cultures is positive for E. coli. Patient was called today from the hospital and asked to come back for hospital admission. He does report continued weakness and chills. [facility] Medical History (Updated 06/18/23 @ 19:[address] Jelly Mccabe MD) Alzheimer's dementia Parkinson's disease Home Medications donepezil 10 mg tablet 10 mg PO DAILY dementia 01/01/21 [History Last Taken 06/18/23] aspirin 81 mg tablet,delayed release (Adult Aspirin Regimen) 81 mg PO DAILY 06/18/23 [History Last Taken 06/18/23] atorvastatin 40 mg tablet 40 mg PO QHS cholesterol 06/18/23 [History Last Taken 06/17/23] carbidopa 25 mg-levodopa 100 mg tablet 1.5 tab PO TID parkinsons 06/18/23 [History Last Taken 06/18/23] cephalexin 500 mg capsule 500 mg PO Q8H #21 caps 06/18/23 [Rx Last Taken Unknown] Allergy/AdvReac Type Severity Reaction Status Date / Time No Known Allergies Allergy Verified 06/18/23 16:41 Family History Other Dementia Diabetes Measles Surgical History H/O transurethral resection of prostate Social History Smoking Status: Unknown if ever smoked Smokeless tobacco user: chewing tobacco ROS ROS ED Constitutional Constitutional ED: Reports chills, fever(s) and subjective Eyes Eyes: Denies change in vision ENT ENT ED: Denies rhinorrhea or sore throat Cardiovascular Cardiovascular: Denies chest pain or palpitations Respiratory/Chest Respiratory/Chest: Reports cough; Denies dyspnea Gastrointestinal Gastrointestinal: Denies abdominal pain, diarrhea, nausea or vomiting Genitourinary Genitourinary ED: Denies dysuria Musculoskeletal Musculoskeletal: Denies back pain or extremity pain Integumentary Denies Abrasions or rash Neurologic Neurologic: Reports weakness; Denies headache(s) Allergic/Immunologic Allergic/Immunologic ED: Denies lip swelling or urticaria EXAM Physical Exam Const Vital Signs: 06/18/23 16:40 06/18/23 16:54 Temperature 97.8 F Temperature Source Temporal Pulse Rate 79 Respiratory Rate 18 Respiratory Pattern Normal Blood Pressure 140/64 H Blood Pressure Mean 89 Pulse Ox 97 Oxygen Delivery Method Room Air Positive well nourished and well developed General Appearance ED: well developed HEENT Reports normocephalic and head/scalp atraumatic Eyes PERRL and EOMs intact bilaterally Neck supple Chest Wall inspection of chest normal and palpation of chest normal Resp normal respiratory effort and clear to auscultation bilaterally Cardio regular rate and regular rhythm GI normal to inspection, nondistended, normoactive bowel sounds Palpation: soft Extremity normal to inspection Neuro oriented x3 Neuro Narrative: No focal neurologic deficits. Sensorium / Orientation: alert Psych mental status grossly normal Skin no rashes or lesions noted MDM MDM MDM Narrative Medical decision making narrative: Labwork obtained to evaluate for leukocytosis, anemia, and electrolyte derangement. Urinalysis obtained to evaluate for infection/hematuria. Chest x- ray obtained to evaluate for acute lung pathology, cardiac size, or mediastinal abnormality. Given his blood culture with E. coli, CT scan of the abdomen and pelvis with IV contrast obtained to evaluate for any bowel inflammation. Repeat blood and urine cultures are drawn. Patient is given a dose of IV Zosyn. Lab Data Labs: Laboratory Results - last 24 hr 06/18/23 06/18/23 06/18/23 16:53 18:30 19:15 WBC 8.2 RBC 4.49 L Hgb 13.8 Hct 42.8 MCV 95.3 H MCH 30.7 MCHC 32.2 RDW Std Deviation 46.0 H RDW Coeff of Jeanette 13.1 Plt Count 227 MPV 11.2 Immature Gran % (Auto) 0.600 Neut % (Auto) 64.5 Lymph % (Auto) 19.7 [place] % (Auto) 11.8 H Eos % (Auto) 2.8 Baso % (Auto) 0.6 Absolute Neuts (auto) 5.3 Absolute Lymphs (auto) 1.62 Nucleated RBC % 0 Differential Comment SCANNED Sodium 141 Potassium 3.3 L Chloride 109 H Carbon Dioxide 25.0 Anion Gap 7 BUN 10 Creatinine 0.93 Estim Creat Clear Calc 53.48 Est GFR (MDRD) Af Amer 100 Est GFR (MDRD) Non-Af 83 BUN/Creatinine Ratio 10.8 Glucose 114 H Lactic Acid 1.6 Calcium 8.5 Total Bilirubin 0.70 Direct Bilirubin 0.43 H AST 104 H ALT 92 H Alkaline Phosphatase 293 H Total Protein 6.9 Albumin 2.6 L Globulin 4.3 H Urine Color Yellow Urine Clarity Clear Urine pH 7.0 Ur Specific [place] 1.010 Urine Protein 15 H Urine Glucose (UA) Normal Urine Ketones Negative Urine Occult Blood 10 H Urine Nitrite Negative Urine Bilirubin Negative Urine Urobilinogen Normal Ur Leukocyte Esterase 500 H Urine RBC 0-5 SEEN Urine WBC 5-10 SEEN Ur Squamous Epith Cells 0 SEEN Urine Bacteria RARE Urine Mucus 0 SEEN Radiography Chest X-Ray - ED: 1 View, Read by ED Physician, Chronic Changes and No Infiltrates Diagnostic Testing: Clinical Impression(s) from Imaging Studies Abdomen/Pelvis CT 06/18/23 17:01 IMPRESSION: 1. Bilateral bladder diverticula posteriorly larger on the right. There is also thickening wall the urinary bladder which may be due to incomplete distention or possible cystitis. 2. Contraction of the gallbladder with questionable thickening of the gallbladder wall. If indicated further evaluation with ultrasound may be beneficial. No other acute abnormalities are identified. Electronically Signed: Omari Maria MD at 18:47 EDT , Chest X-Ray 06/18/23 17:43 IMPRESSION: No radiographic evidence of acute cardiopulmonary disease. Electronically Signed: Omari Maria MD at 18:15 EDT , Treatment and Re-Evaluation :: CBC was normal white count at 8.2 with normal differential. Hemoglobin normal at 13.8. Chemistry studies reveal slightly low potassium at 3.3. Renal function is normal. Total bilirubin is normal at 2.7. Direct bilirubin 0.43. AST is 104 and ALT is 92. Alk phos is 293. Patient has no tenderness in the right upper quadrant. Lactic acid is 1.6. Urinalysis is pending. Blood and urine cultures have been redrawn. Patient has received a dose of Zosyn. CT scan of the abdomen and pelvis reveals bladder diverticula with bladder wall thickening. Gallbladder is contracted without pericholecystic fluid. With patient having a positive blood culture for E. coli he will be admitted for IV antibiotics. I will speak with hospitalist. Addendum: I spoke with the hospitalist. He advises that with only 1 set of blood cultures positive for E. coli, he does feel the patient could be sent home with oral Keflex. He states that the patient is too weak to go home and needs longterm placement he would be happy to admit the patient. Patient and family do not want longterm placement. I will write him a prescription for Keflex and discharge him to home with close return instructions. Discharge Plan Triage Chief Complaint: Abn Labs ED Provider: Jelly Mccabe Dx/Rx/DC Orders Clinical Impression: Bacteremia Instructions: ED Bacteremia, Suspected (Adult) Prescriptions: New cephalexin 500 mg capsule 500 mg PO Q8H Qty: 21 0RF No Action donepezil 10 MG tablet 10 mg PO DAILY atorvastatin 40 mg tablet 40 mg PO QHS carbidopa-levodopa 25-100 mg tablet 1.5 tab PO TID aspirin [Adult Aspirin Regimen] 81 mg tablet,delayed release (DR/EC) 81 mg PO DAILY Primary Care Provider: Royer Sparks Referrals: Royer Sparks DO [Primary Care Provider] - 5-7 Days Disposition Disposition: Home, Self Care
--- NOTE | 2023-06-18 17:43 | RAD_ITS ---
EXAM: XR CHEST, 1 VIEW CLINICAL INDICATION: fever TECHNIQUE: Frontal view of the chest. COMPARISON: 06/14/2023 FINDINGS: LUNGS AND PLEURAL SPACES: Unremarkable. No consolidation or edema. No pneumothorax. No effusion. HEART: Unremarkable. Cardiac silhouette not enlarged. MEDIASTINUM: Central airways and mediastinal contour are unremarkable. BONES/JOINTS: Unremarkable. SOFT TISSUES: Unremarkable. RAD/Chest 1 View (Portable) IMPRESSION: No radiographic evidence of acute cardiopulmonary disease. Electronically Signed: Omari Maria MD at 18:15 EDT ,
[2023-06-18] MEDS: 0.9% Normal Saline 1,000 ML 150 ML IV (17:54)
[2023-06-18 17:58] LABS: Absolute Lymphocyte Count 1.62 X10^3/uL (0.83-4.51); Absolute Neutrophil Count 5.3 X10^3/uL (2.0-7.7); Basophil# 0.05 X10^3/uL; Basophil% 0.6 % (0-1); Eosinophil# 0.23 X10^3/uL; Eosinophils% 2.8 % (0-5); Hematocrit 42.8 % (40-54); Hemoglobin 13.8 g/dL (13.0-16.5); Lymphocyte # 1.62 X10^3/ul (0.83-4.51); Lymphocyte % 19.7 % (19-41); Mean Corp Hgb Conc 32.2 g/dL (32-36); Mean Corpuscular Hgb 30.7 pg (27.0-32.0); Mean Corpuscular Volume 95.3 fL (80-94); Mean Platelet Vol. 11.2 fl (6.2-12.0); Monocyte# 0.97 X10^3/uL; Monocyte% 11.8 % (0-10); NRBC Flagged by Analyzer 0 % (0-5); Neutrophil # 5.29 X10^3/uL (2.7-7.7); Neutrophil % 64.5 % (47-70); POSITIVE COUNT YES; Platelet Count 227 K/mm3 (150-450); RBC Distribution Width CV 13.1 % (11.6-14.6); Red Blood Count 4.49 M/mm3 (4.6-6.2); White Blood Count 8.2 K/mm3 (4.4-11.0)
[2023-06-18 18:00] LABS: Differential Indicated SCAN CRITERIA MET
[2023-06-18 18:10] LABS: AST(SGOT) 104 U/L (15-37); Alanine Aminotransfer ALT/SGPT 92 U/L (16-61); Albumin, Serum 2.6 g/dL (3.2-5.0); Alkaline Phosphatase 293 U/L (45-117); Anion Gap 7 (5-15); BUN 10 mg/dL (7-18); BUN/Creat Ratio 10.8 RATIO (10-20); Bilirubin, Direct 0.43 mg/dL (0.00-0.30); Calcium,Total 8.5 mg/dL (8.5-10.1); Chloride 109 mmol/L (98-107); Creatinine, Serum 0.93 mg/dL (0.70-1.30); EST Glomerular Filtration Rate 83 mL/min (>60); Est Glom Filt Rate - Afr Amer 100 mL/min (>60); Estimated Creatinine Clearance 53.48 ml/min; Globulin 4.3 g/dL (2.2-4.2); Glucose 114 mg/dL (74-106); Potassium 3.3 mmol/L (3.5-5.1); Protein, Total 6.9 g/dL (6.4-8.2); Sodium Level 141 mmol/L (136-145)
[2023-06-18 18:20] LABS: Differential Comment SCANNED
[2023-06-18 19:13] LABS: Lactic Acid 1.6 mmol/L (0.4-1.9)
[2023-06-18 19:24] LABS: Mucous, Urine 0 SEEN /hpf (<or=2+); Squamous Epithelial Cells - UA 0 SEEN /hpf (0-5)
[2023-06-18 19:25] LABS: Color, Urine Yellow (Yellow); Glucose, Dipstick Normal (Normal); Ketone-Dipstick Negative (Negative); Leukocyte Esterase-Dipstick 500 /ul (Negative); Nitrite-Dipstick Negative (Negative); Occult Blood-Urine 10 /ul (Negative); Protein-Dipstick 15 mg/dl (Negative); Urine Bilirubin Dipstick Negative (Negative); Urine Clarity Clear (Clear); Urine Urobilinogen Normal (Normal)
[2023-06-18 19:30] LABS: Bacteria RARE /hpf (None Seen); White Blood Cells 5-10 SEEN /hpf (0-5)
[2023-06-18 19:31] LABS: Red Blood Cells-Urine 0-5 SEEN /hpf (0-5)
[2023-06-18 19:53] VITALS: BP 134/78; PULSE 78; RESP 18; TEMP 36.7; O2SAT 97
== END 2023-06-18 19:56 | disposition home or self-care (01) ==
PROVIDERS: Emergency Provider Emergency Medicine; PCP Family Medicine; Visit Provider Emergency Medicine
DX: R78.81 Bacteremia (principal); G20 Parkinson's disease; R68.83 Chills (without fever); R35.0 Frequency of micturition; Z79.82 Long term (current) use of aspirin; Z79.899 Other long term (current) drug therapy
CPT/HCPCS: 36415; 71045; 74177; 80048; 80076; 81001; 83605; 85025; 87040; 87077; 87086; 87088; 87186; 93005; 96361; 96365; 99284; J7030; Q9967; A4216

== ENCOUNTER → 2023-10-12 | Outpatient (CLI) | payer MEDICARE, SELFPAY | END | disposition home or self-care (01) | LOC: LAB 13:39 | PROVIDERS: PCP Family Medicine; Referring Provider Urology; Visit Provider Urology | DX: R97.20 Elevated prostate specific antigen [PSA] (principal) | CPT/HCPCS: 36415; 84153 ==

== ENCOUNTER 2024-09-11 15:17 | Emergency (ER) | payer MEDICARE, SELFPAY ==
[2024-09-11 15:17] VITALS: BP 161/75; PULSE 82; RESP 16; TEMP 36.5; O2SAT 98; BMI 23.1
[2024-09-11 17:17] VITALS: BP 161/67; PULSE 67; RESP 18
--- NOTE | 2024-09-11 17:33 | EKG12_ITS ---
Test Reason : GEN ILL Blood Pressure : / mmHG Vent. Rate : 067 BPM Atrial Rate : 067 BPM P-R Int : 174 ms QRS Dur : 090 ms QT Int : 376 ms P-R-T Axes : 070 054 049 degrees QTc Int : 397 ms Normal sinus rhythm Normal ECG Confirmed by FRANK WITT, ESE ([id number]), fashion editor ANGELA ALEJANDRO ([id number]) on 09/12/2024 8:02:08 AM Referred By: Confirmed By:ESE MARIE MD
--- NOTE | 2024-09-11 17:34 | EX.ED.DYSGE1 ---
HPI History of Present Illness Chief Complaint: General Illness Informant: patient and spouse/S.O. Narrative Narrative: 83-year-old male has been tired last few days and sleeping more, today was very unusual that he was sleeping with his mouth agape and his eyes open, and the states she had trouble waking him up. Eventually he was alert. Then he was able to walk and go to another room, he started reading the newspaper and suddenly became nauseated and vomited. It was nonbilious nonbloody. He feels better now. He denies any pain in his abdomen or his chest. He has been coughing some recently occasionally bringing up some clear phlegm. No blood. He denies any focal neurologic symptoms or headaches, or urinary problems. He had a bowel movement today that was normal without blood or melena. The states she brought him in for concern of these symptoms today, because he does not vomit often and wants he had pneumonia when this happened. She states they had guests for 3 weeks, and she was writing off his fatigue and sleeping more related to that. She also states that he has some dementia with his Parkinson's and that his answers may or may not be very reliable. [facility] Medical History Parkinson's disease Alzheimer's dementia Home Medications ?Medication ?Instructions ?Recorded ?Last Taken ?Type donepezil 10 mg tablet 10 mg PO DAILY dementia 01/01/21 06/18/23 History aspirin 81 mg tablet,delayed 81 mg PO DAILY 06/18/23 06/18/23 History release (Adult Aspirin Regimen) atorvastatin 40 mg tablet 40 mg PO QHS cholesterol 06/18/23 06/17/23 History carbidopa 25 mg-levodopa 100 mg 1.5 tab PO TID parkinsons 06/18/23 06/18/23 History tablet cephalexin 500 mg capsule 500 mg PO Q8H #21 caps 06/18/23 Unknown Rx ondansetron 8 mg disintegrating 8 mg PO Q8H PRN nausea and 09/11/24 Unknown Rx tablet vomiting #20 tabs rosuvastatin 10 mg tablet 10 mg PO DAILY 09/11/24 Unknown History Allergy/AdvReac Type Severity Reaction Status Date / Time No Known Allergies Allergy Verified 09/11/24 15:17 Family History Other Dementia Diabetes Measles Surgical History H/O transurethral resection of prostate Social History Smoking Status: Unknown if ever smoked Smokeless tobacco user: chewing tobacco ROS ROS ED Constitutional Constitutional ED: Denies chills or fever(s) Eyes Eyes: Denies change in vision or diplopia ENT ENT ED: Denies ear pain or sore throat Cardiovascular Cardiovascular: Denies chest pain, orthopnea or palpitations Respiratory/Chest Respiratory/Chest: Reports cough and sputum; Denies dyspnea, dyspnea on exertion or orthopnea Gastrointestinal Gastrointestinal: Reports nausea and vomiting; Denies abdominal pain or diarrhea Genitourinary Genitourinary ED: Denies dysuria, hematuria or urinary frequency Musculoskeletal Musculoskeletal: Denies back pain or neck pain Integumentary Denies abscess or rash Neurologic Neurologic: Reports tremor(s) and other Details: Confusion but at baseline per spouse ; Denies headache(s), paresthesias or weakness Psychiatric Psychiatric: Denies anxiety or suicidal thoughts EXAM Physical Exam Const Vital Signs: 09/11/24 15:17 09/11/24 16:52 09/11/24 17:17 Temperature 97.7 F L Temperature Source Oral Pulse Rate 82 67 Respiratory Rate 16 18 Respiratory Effort Normal Non-Labored Blood Pressure 161/75 H 161/67 H Blood Pressure Mean 103 98 Pulse Ox 98 Oxygen Delivery Method 09/11/24 18:45 09/11/24 21:12 Temperature Temperature Source Pulse Rate 80 84 Respiratory Rate 20 H 16 Respiratory Effort Blood Pressure 168/85 H 138/83 H Blood Pressure Mean 112 101 Pulse Ox 94 Oxygen Delivery Method Room Air Positive well nourished and well developed General Appearance ED: well developed and NAD HEENT Reports moist mucous membranes normocephalic and atraumatic Eyes PERRL and EOMs intact bilaterally Neck full ROM and supple Resp normal respiratory effort and clear to auscultation bilaterally Resp Narrative: Diminished right base Cardio regular rate, regular rhythm and no murmurs GI non-tender and non-distended Auscultation: normoactive bowel sounds Palpation: soft Back/Spine no CVA tenderness General Back: other FROM Extremity normal to inspection General Extremety ED: Negative for edema, pulses abnormal or tenderness General Extremity: Negative for edema or pulses abnormal Neuro CN's II-XII intact bilaterally and no sensory deficits noted Neuro Narrative: At baseline mental status per spouse. Nonfocal peripheral neurologic exam. Sensorium / Orientation: awake, alert and orientation impaired Motor Exam: strength 5/5 throughout Psych mental status grossly normal Skin no rashes or lesions noted and no wounds MDM MDM MDM Narrative Medical decision making narrative: Did a thorough [employer], metabolic, infectious, cardiopulmonary workup on this patient looking for reasons for him to have these nonspecific symptoms of fatigue and an episode of vomiting. The workup is essentially unremarkable. He has no acute sign of UTI. No pneumonia. COVID/flu/RSV negative. No acute intracranial abnormality, no acute metabolic abnormality. It is EKG is normal and his troponin is single digits normal. At this time we will comfortable discharging him, we given some Zofran he is tolerating oral fluids and feeling okay blood pressure 138/83 and the rest of his vital signs are normal. It is noted that the radiologist basically said maybe sphenoid sinusitis, the patient is not having any headaches and I do not think that is something acute that could be causing this. Therefore I do not think he needs to be treated with antibiotics which I discussed with the family. Lab Data Attestation: I reviewed the patient's lab results. Labs: Laboratory Results - last 24 hr 09/11/24 09/11/24 16:50 18:00 WBC 10.6 RBC 5.37 Hgb 16.7 H Hct 51.0 MCV 95.0 H MCH 31.1 MCHC 32.7 RDW Std Deviation 45.8 H RDW Coeff of Jeanette 13.1 Plt Count 249 MPV 10.1 Immature Gran % (Auto) 0.700 Neut % (Auto) 83.9 H Lymph % (Auto) 8.5 L [place] % (Auto) 6.1 Eos % (Auto) 0.4 Baso % (Auto) 0.4 Absolute Neuts (auto) 8.9 H Absolute Lymphs (auto) 0.90 Nucleated RBC % 0 Sodium 140 Potassium 4.1 Chloride 105 Carbon Dioxide 27.0 Anion Gap 8 BUN 15 Creatinine 1.08 Estim Creat Clear Calc 48.38 Est GFR (MDRD) Af Amer 83 Est GFR (MDRD) Non-Af 69 BUN/Creatinine Ratio 13.9 Glucose 100 Calcium 8.9 Total Bilirubin 0.70 AST 22 ALT 12 L Alkaline Phosphatase 96 Troponin I High Sens 8 Total Protein 7.5 Albumin 3.8 Globulin 3.7 Albumin/Globulin Ratio 1.0 Urine Color Yellow Urine Clarity Clear Urine pH 6.5 Ur Specific [place] 1.015 Urine Protein 15 H Urine Glucose (UA) Normal Urine Ketones 5 H Urine Occult Blood Negative Urine Nitrite Negative Urine Bilirubin Negative Urine Urobilinogen Normal Ur Leukocyte Esterase 25 H Urine RBC 0 SEEN Urine WBC 0-5 SEEN Ur Squamous Epith Cells 0 SEEN Urine Bacteria 0 SEEN Urine Mucus 0 SEEN Radiography Chest X-Ray - ED: 2 View, Read by ED Physician, No Acute Disease, Chronic Changes and No Infiltrates Diagnostic Testing: Clinical Impression(s) from Imaging Studies Brain CT 09/11/24 17:36 IMPRESSION: Possible sphenoid sinusitis otherwise no acute intracranial disease. Electronically Signed: Claude Hayden MD at 21:27 EDT Reading Location ID and State: [facility] / [place] Tel , Service support , Chest X-Ray 09/11/24 18:20 IMPRESSION: COPD Electronically Signed: Claude Hayden MD at 21:19 EDT , CT of the head was obtained in order to rule out intracranial injury or hemorrhage, I reviewed the images and report which I agree with, negative for anything acute. Rhythm Strip Rhythm Strip: Sinus Rhythm Rate: 65 Ectopy: None EKG Initial EKG: Attestation: I personally reviewed and interpreted this EKG as follows: Interpretation: Sinus Rhythm and No Acute Injury Pattern Comments: Nml axis & intervals; nml EKG Discharge Plan Triage Chief Complaint: General Illness ED Provider: Santi Reyna Dx/Rx/DC Orders Clinical Impression: Fatigue, Vomiting Instructions: ED Vomiting (Adult) Prescriptions: New ondansetron 8 mg tablet,disintegrating 8 mg PO Q8H PRN (Reason: nausea and vomiting) Qty: 20 0RF No Action donepezil 10 MG tablet 10 mg PO DAILY atorvastatin 40 mg tablet 40 mg PO QHS carbidopa-levodopa 25-100 mg tablet 1.5 tab PO TID aspirin [Adult Aspirin Regimen] 81 mg tablet,delayed release (DR/EC) 81 mg PO DAILY cephalexin 500 mg capsule 500 mg PO Q8H Qty: 21 0RF rosuvastatin 10 mg tablet 10 mg PO DAILY Primary Care Provider: Royer Sparks Referrals: Royer Sparks, [Primary Care Provider] - 3-5 Days if not improving Print Language: Citizen Of [place] Disposition Disposition: Home, Self Care
--- NOTE | 2024-09-11 17:36 | CT_ITS ---
STUDY: CT BRAIN WITHOUT CONTRAST REASON FOR EXAM: Male, 83 years old. Fatigue, vomiting, dementia RADIATION DOSAGE (If Supplied By Facility): CTDIvol = ( 44.99 ) mGy, DLP = ( 812.98 ) mGycm TECHNIQUE: Transaxial CT imaging of the brain was performed without administration of intravenous contrast material. Individualized dose optimization techniques were used for this CT. The protocol utilizes one or more of the following dose reduction techniques: automated exposure control, adjustment of mA and/or kV according to patient size,and/or use of iterative reconstruction technique. COMPARISON: No relevant priors. FINDINGS: Normal soft tissue structures. Normal calvarium. There is moderate cerebral atrophy with widening of the extra-axial spaces and ventricular dilatation. There are areas of decreased attenuation within the white matter tracts of the supratentorial brain, consistent with microvascular disease changes. Normal basal ganglia and thalami. Normal brainstem. Normal cerebellum. Intracranial atherosclerosis. There is no intracranial hemorrhage. There are no findings of an acute ischemic infarction. Opacification left sphenoid sinus. CT/Brain/Head without Contrast IMPRESSION: Possible sphenoid sinusitis otherwise no acute intracranial disease. Electronically Signed: Claude Hayden MD at 21:27 EDT ,
[2024-09-11 17:44] LABS: Absolute Neutrophil Count 8.9 X10^3/uL (2.0-7.7); Basophil# 0.04 X10^3/uL; Basophil% 0.4 % (0-1); Eosinophil# 0.04 X10^3/uL; Eosinophils% 0.4 % (0-5); Hemoglobin 16.7 g/dL (13.0-16.5); Lymphocyte % 8.5 % (19-41); Mean Corp Hgb Conc 32.7 g/dL (32-36); Mean Corpuscular Hgb 31.1 pg (27.0-32.0); Mean Platelet Vol. 10.1 fl (6.2-12.0); Monocyte# 0.65 X10^3/uL; Monocyte% 6.1 % (0-10); NRBC Flagged by Analyzer 0 % (0-5); Neutrophil % 83.9 % (47-70); Platelet Count 249 K/mm3 (150-450); RBC Distribution Width CV 13.1 % (11.6-14.6); RBC Distribution Width SD 45.8 fl (35.1-43.9); Red Blood Count 5.37 M/mm3 (4.6-6.2); White Blood Count 10.6 K/mm3 (4.4-11.0)
[2024-09-11] MEDS: Ondansetron 4 MG/2 ML Vial IV (17:47)
[2024-09-11 18:04] LABS: AST(SGOT) 22 U/L (15-37); Alanine Aminotransfer ALT/SGPT 12 U/L (16-61); Albumin, Serum 3.8 g/dL (3.2-5.0); Alkaline Phosphatase 96 U/L (45-117); Anion Gap 8 (5-15); BUN 15 mg/dL (7-18); BUN/Creat Ratio 13.9 RATIO (10-20); Calcium,Total 8.9 mg/dL (8.5-10.1); Chloride 105 mmol/L (98-107); Creatinine, Serum 1.08 mg/dL (0.70-1.30); EST Glomerular Filtration Rate 69 mL/min (>60); Est Glom Filt Rate - Afr Amer 83 mL/min (>60); Estimated Creatinine Clearance 48.38 ml/min; Globulin 3.7 g/dL (2.2-4.2); Glucose 100 mg/dL (74-106); Potassium 4.1 mmol/L (3.5-5.1); Protein, Total 7.5 g/dL (6.4-8.2); Sodium Level 140 mmol/L (136-145); Troponin-I HS 8 pg/mL (3.0-78.0)
[2024-09-11 18:09] LABS: Bacteria 0 SEEN /hpf (None Seen); Mucous, Urine 0 SEEN /hpf (<or=2+); Red Blood Cells-Urine 0 SEEN /hpf (0-5); Squamous Epithelial Cells - UA 0 SEEN /hpf (0-5)
[2024-09-11 18:15] LABS: Color, Urine Yellow (Yellow); Glucose, Dipstick Normal (Normal); Ketone-Dipstick 5 mg/dl (Negative); Leukocyte Esterase-Dipstick 25 /ul (Negative); Nitrite-Dipstick Negative (Negative); Occult Blood-Urine Negative /ul (Negative); Protein-Dipstick 15 mg/dl (Negative); Specific Gravity, Urine 1.015 (1.002-1.030); Urine Bilirubin Dipstick Negative (Negative); Urine Clarity Clear (Clear); Urine Urobilinogen Normal (Normal); Urine pH 6.5 (5.0 - 8.0)
--- NOTE | 2024-09-11 18:20 | RAD_ITS ---
STUDY: X-RAY CHEST REASON FOR EXAM: Male, 83 years old. weakness TECHNIQUE: Frontal and lateral views of the chest. COMPARISON: June 18, 2023 chest x-ray FINDINGS: Lungs are hyperaerated. The lungs are clear and expanded. There is no demonstrated pleural abnormality. Normal size heart. Normal mediastinum and jerome. Normal visualized pulmonary arteries. Normal visualized aortic arch and descending thoracic aorta. Normal visualized thoracic spine. Normal visualized ribs, clavicles, and shoulders. There is no demonstrated abnormality of the visualized soft tissue structures of the upper abdomen. RAD/Chest PA and Lateral IMPRESSION: COPD Electronically Signed: Claude Hayden MD at 21:19 EDT ,
[2024-09-11 18:40] LABS: White Blood Cells 0-5 SEEN /hpf (0-5)
[2024-09-11 18:45] VITALS: BP 168/85; PULSE 80; RESP 20
[2024-09-11 21:12] VITALS: BP 138/83; PULSE 84; RESP 16; O2SAT 94
[2024-09-11 22:07] VITALS: BP 125/76; PULSE 74; RESP 18; TEMP 36.8; O2SAT 97
== END 2024-09-11 22:08 | disposition home or self-care (01) ==
PROVIDERS: Emergency Provider Emergency Medicine; PCP Family Medicine; Visit Provider Emergency Medicine
DX: R53.83 Other fatigue (principal); G20.A1 Parkinson's disease without dyskinesia, without mention of fluctuations; G30.9 Alzheimer's disease, unspecified; F02.80 Dementia in other diseases classified elsewhere, unspecified severity, without behavioral disturbance, psychotic disturbance, mood disturbance, and anxiety; J44.9 Chronic obstructive pulmonary disease, unspecified; R11.2 Nausea with vomiting, unspecified; F17.220 Nicotine dependence, chewing tobacco, uncomplicated; Z79.82 Long term (current) use of aspirin; Z79.899 Other long term (current) drug therapy
CPT/HCPCS: 70450; 71046; 80053; 81001; 84484; 85025; 87631; 93005; 96374; 99284; A4216; J2405